=== PATIENT | male | born 1955 | race African-American/Black ===

== ENCOUNTER 2018-10-08 16:55 | Emergency (ER) | payer MEDICAID ==
[~2018-10-08] VITALS: Ht 200.7 cm; Wt 83.9 kg
--- NOTE | 2018-10-08 17:05 | NUR ---
ACCUCHGRACE- 319, TERRY STEWART AWARE.
--- NOTE | 2018-10-08 17:10 | NUR ---
BIBRA60 FROM SN[facility] FOR INCREASED CONFUSION AND HYPERGLYCEMIA, BG 500+ WAS GIVEN 5 UNITS INSULIN FINANCIAL AUDITOR. PT C/O LOWER BACK PAIN. PATIENT PLACED IN BED, ATTACHED TO THE MONITOR, NO DISTRESS, TUBBS CATHETER IN PLACED, IV LINE ON LEFT FA G18. WILL MONITOR.
[2018-10-08 17:48] LABS: BASOPHILS % (AUTO) 0.2 % (0.0-2.0); EOSINOPHILS % (AUTO) 0.2 % (0.0-6.0); HEMATOCRIT 21 % (39-51); LYMPHOCYTES # (AUTO) 0.9 /CMM (0.8-4.8); LYMPHOCYTES % (AUTO) 14.4 % (20.0-44.0); MEAN CORPUSCULAR HGB CONC 31 g/dl (31.0-36.0); MEAN CORPUSCULAR VOLUME 89 fL (80-96); MONOCYTES # (AUTO) 0.4 /CMM (0.1-1.30); MONOCYTES % (AUTO) 6.2 % (2.0-12.0); PLATELET COUNT (AUTO) 420 /CMM (150-450); RED BLOOD CELL COUNT(AUTO) 2.36 MIL/uL (4.5-6.0); WHITE BLOOD COUNT (AUTO) 6.4 K/uL (4.3-11.0)
[2018-10-08 17:49] LABS: APPEARANCE,URINE Cloudy (CLEAR); BILIRUBIN,URINE Negative (NEGATIVE); BLOOD, URINE Large Ery/uL (NEGATIVE); COLOR,URINE Amber (YELLOW); KETONES,URINE Negative (NEGATIVE); LEUKOCYTE ESTERASE ,URINE Large (NEGATIVE); NITRITE, URINE Negative (NEGATIVE); PH,URINE 8.5 (5.0-8.0); PROTEIN,URINE 100 mg/dl (NEGATIVE); UGLUCOSE Negative (NEGATIVE); UROBILINOGEN,URINE 0.2 EU/dL (0.2)
[2018-10-08 17:49] LABS: HEMOGLOBIN 6.5 g/dL (13.5-17.5)
[2018-10-08] MEDS: IV NS 0.9% 1,000 ML BAG IV ONE ×2 (17:49→18:37)
[2018-10-08 17:54] LABS: CARBON DIOXIDE 27 mmol/L (21-32); CHLORIDE 106 mmol/L (98-107); GLUCOSE 311 mg/dL (74-106); POTASSIUM 4.3 mmol/L (3.5-5.1); SODIUM SERUM 141 mmol/L (136-145); UREA NITROGEN, BLOOD 56 mg/dL (7-18)
[2018-10-08 18:00] LABS: ALANINE AMINOTRANSFERASE 136 U/L (12-78); ALBUMIN 1.7 g/dL (3.4-5.0); ALKALINE PHOSPHATASE 263 U/L (46-116); ASPARTATE AMINOTRANSFERASE 80 U/L (15-37); BILIRUBIN,DIRECT 0.2 mg/dL (0.0-0.2); BILIRUBIN,TOTAL 0.3 mg/dL (0.2-1.0); TOTAL PROTEIN, SERUM 7.1 g/dL (6.4-8.2)
--- NOTE | 2018-10-08 18:08 | NUR ---
PATIENT HAD A BOWEL MOVEMENT, PERICARE PROVIDED. PATIENT NOTED WITH O2 SAT OF 80S ON ROOM AIR, PLACED ON 2 LPM VIA NC ONLY, NOT TO GO HIGHER DUE TO EMPHYSEMA PER TERRY STEWART.
[2018-10-08 18:11] LABS: BACTERIA,URINE Many /HPF (None Seen); RBC,URINE 21-50 /HPF (0-2); SQUAMOUS EPITHELIAL CELL,UR Few /HPF (None Seen)
--- NOTE | 2018-10-08 18:35 | NUR ---
PATIENT CAME BACK FROM CT SCAN.
[2018-10-08] MEDS ORDERED: FERR325T28 PO (18:38)
[2018-10-08] MEDS ORDERED: ZINC220C6 PO (18:38)
[2018-10-08] MEDS ORDERED: QUET25TA PO (18:38)
[2018-10-08] MEDS ORDERED: PANT40TA4 PO (18:38)
[2018-10-08] MEDS ORDERED: INSU100I4 SQ (18:38)
[2018-10-08] MEDS ORDERED: BISA10SU61 RC (18:38)
[2018-10-08] MEDS ORDERED: CHOL20004 PO (18:38)
[2018-10-08] MEDS ORDERED: NA P133E RC (18:38)
[2018-10-08] MEDS ORDERED: MEMA10TA PO (18:38)
[2018-10-08] MEDS ORDERED: MULT-439 PO (18:38)
[2018-10-08] MEDS ORDERED: HYDR-4354 PO ×2 (18:38)
[2018-10-08] MEDS ORDERED: IPRA0.2S49 IH (18:38)
[2018-10-08] MEDS ORDERED: DILT360T13 PO (18:38)
[2018-10-08] MEDS ORDERED: MULT-1094 PO (18:38)
[2018-10-08] MEDS ORDERED: SENN-168 PO (18:38)
[2018-10-08] MEDS ORDERED: APIX5TAB4 PO (18:38)
[2018-10-08] MEDS ORDERED: PROT946L PO (18:38)
[2018-10-08] MEDS ORDERED: ACET-868 PO (18:38)
[2018-10-08] MEDS ORDERED: ASCO500C18 PO (18:38)
[2018-10-08] MEDS ORDERED: CRAN3875 PO (18:38)
[2018-10-08] MEDS ORDERED: GABA-532 PO (18:38)
[2018-10-08] MEDS ORDERED: FOLI1TAB16 PO (18:38)
[2018-10-08] MEDS ORDERED: TYL2T PO (18:38)
[2018-10-08] MEDS ORDERED: CRAN450C PO (18:38)
[2018-10-08] MEDS ORDERED: ATOR80TA PO (18:38)
[2018-10-08] MEDS ORDERED: MAGN400O6 PO (18:38)
[2018-10-08] MEDS: PIPERACILLIN /TAZOBACTAM 3.375 G in IV D5W 50 ML IV ONE (18:40)
--- NOTE | 2018-10-08 18:41 | NUR ---
CALLED DAUGHTER TWICE, NO ANSWER AT THIS TIME.
[2018-10-08 19:03] LABS: BAND % (MANUAL) 12 % (0.0-5.0); LYMPHOCYTES % (MANUAL) 7 % (16-48); MONOCYTES % (MANUAL) 7 % (0-11.0); NEUTROPHILS % (MANUAL) 74 (42-76)
--- NOTE | 2018-10-08 19:17 | NUR ---
PATIENT IN NO DISTRESS, ENDORSED TO ELAINA SUERO FOR LEROY.
--- NOTE | 2018-10-08 19:25 | NUR ---
PT IN BED AWAKE W /US TECH AT THE BED SIDE. NO DISTRESS NOTED,. VSS .WILL CONT TO MONITOR ,
--- NOTE | 2018-10-08 20:51 | NUR ---
Pt accpepted to [facility]. [facility]. # for report [phone]. auth#[id number].
--- NOTE | 2018-10-08 21:18 | NUR ---
Jennifer called for ALS transport. ETA: [id number] Trip#[id number]
[2018-10-08 22:12] VITALS: BP 146/82
--- NOTE | 2018-10-08 22:12 | NUR ---
report given to Dimmit at [facility] and also clinical rn liaison at the bed side.
--- NOTE | 2018-10-08 22:25 | NUR ---
pt was picked up and transferred via [facility] with a gurney in stable condition.
== END 2018-10-08 22:30 | disposition short-term general hospital (02) ==
LOC: ER 17:01
DX: N39.0 Urinary tract infection, site not specified (principal); E11.65 Type 2 diabetes mellitus with hyperglycemia; R79.89 Other specified abnormal findings of blood chemistry; R74.0 Nonspecific elevation of levels of transaminase and lactic acid dehydrogenase [LDH]; D64.9 Anemia, unspecified; L98.419 Non-pressure chronic ulcer of buttock with unspecified severity; I10 Essential (primary) hypertension; I48.91 Unspecified atrial fibrillation; E78.5 Hyperlipidemia, unspecified; K21.9 Gastro-esophageal reflux disease without esophagitis; Z86.73 Personal history of transient ischemic attack (TIA), and cerebral infarction without residual deficits; Z79.4 Long term (current) use of insulin; Z79.899 Other long term (current) drug therapy
CPT/HCPCS: 36415; 70450; 71045; 72131; 76705; 80048; 80076; 81001; 82962; 83605 ×2; 84145; 84484; 85025; 86850; 87040 ×2; 87077 ×2; 87081; 87086; 87186 ×2; 93005; 96361; 96365; 99285; J2543; J7030 ×2; J7040; J7060; 81000-TC

== ENCOUNTER → 2018-10-20 | Emergency (ER) | payer MEDICAID ==
[~2018-10-20] VITALS: Ht 200.7 cm; Wt 83.9 kg
[~2018-10-20] MED LIST: ACET-868 PO; AMIN30LI2 PO; APIX5TAB4 PO; ASCO500C18 PO; ATOR80TA PO; BISA10SU61 RC; CHOL100044 PO; CHOL20004 PO; CRAN3875 PO; CRAN450C PO; DILT360T13 PO; FERR325T28 PO; FOLI1TAB16 PO; GABA-532 PO; HYDR-4354 PO; INSU100I4 SQ; INSU100V27 SQ; IPRA0.2S49 IH; IPRA0.2S9 IH; IV NS 0.9% 1,000 ML BAG IV ONE; MAGN400O6 PO; MEMA10TA PO; MULT-1094 PO; MULT-439 PO; NA P133E RC; PANT40TA4 PO; PIPERACILLIN /TAZOBACTAM 3.375 G VIAL IV ONE; PIPERACILLIN /TAZOBACTAM 3.375 G in IV D5W 50 ML IV ONE; PROT946L PO; QUET25TA PO; SENN-168 PO; TYL2T PO; VANCOMYCIN 1 GM VIAL ONE; VANCOMYCIN 1 GM in IV D5W 250 ML IV ONE; ZINC220C6 PO
[2018-10-20 18:40] LABS: BASOPHILS # (AUTO) 0.1 /CMM (0.0-0.2); BASOPHILS % (AUTO) 0.9 % (0.0-2.0); EOSINOPHILS % (AUTO) 2.1 % (0.0-6.0); HEMATOCRIT 22 % (39-51); HEMOGLOBIN 7.1 g/dL (13.5-17.5); LYMPHOCYTES # (AUTO) 2.4 /CMM (0.8-4.8); LYMPHOCYTES % (AUTO) 22.2 % (20.0-44.0); MEAN CORPUSCULAR HGB CONC 33 g/dl (31.0-36.0); MEAN CORPUSCULAR VOLUME 87 fL (80-96); MONOCYTES # (AUTO) 0.4 /CMM (0.1-1.30); MONOCYTES % (AUTO) 3.4 % (2.0-12.0); NEUTROPHILS # (AUTO) 7.6 /CMM (1.8-8.9); NEUTROPHILS % (AUTO) 71.4 % (43.0-81.0); PLATELET COUNT (AUTO) 434 /CMM (150-450); RED BLOOD CELL COUNT(AUTO) 2.47 MIL/uL (4.5-6.0); WHITE BLOOD COUNT (AUTO) 10.6 K/uL (4.3-11.0)
--- NOTE | 2018-10-20 18:44 | NUR ---
PATIENT AWAKE ALERT DEMANDS @ TIMES bib ems FROM [facility]ILL [facility] . NOTED LESION TO [facility] AND BUMONTY NOTED SOILED KEEP PATIENT CLEAN AND DRY PLACED NEW DRESSING TO LESION
[2018-10-20 18:50] LABS: CALCIUM, SERUM 8.3 mg/dL (8.5-10.1); CARBON DIOXIDE 21 mmol/L (21-32); CHLORIDE 108 mmol/L (98-107); CREATININE 1.3 mg/dL (0.6-1.3); GLUCOSE 253 mg/dL (74-106); POTASSIUM 4.4 mmol/L (3.5-5.1); SODIUM SERUM 140 mmol/L (136-145); UREA NITROGEN, BLOOD 33 mg/dL (7-18)
[2018-10-20 19:01] LABS: ALANINE AMINOTRANSFERASE 15 U/L (12-78); ALBUMIN 1.5 g/dL (3.4-5.0); ALKALINE PHOSPHATASE 132 U/L (46-116); ASPARTATE AMINOTRANSFERASE 15 U/L (15-37); BILIRUBIN,DIRECT 0.1 mg/dL (0.0-0.2); BILIRUBIN,TOTAL 0.2 mg/dL (0.2-1.0); LIPASE 37 U/L (73-393); TOTAL PROTEIN, SERUM 6.3 g/dL (6.4-8.2)
[2018-10-20 19:09] LABS: APPEARANCE,URINE Cloudy (CLEAR); BILIRUBIN,URINE Negative (NEGATIVE); BLOOD, URINE Small Ery/uL (NEGATIVE); COLOR,URINE Yellow (YELLOW); KETONES,URINE Negative (NEGATIVE); LEUKOCYTE ESTERASE ,URINE Large (NEGATIVE); NITRITE, URINE Negative (NEGATIVE); PH,URINE 8.5 (5.0-8.0); PROTEIN,URINE 30 mg/dl (NEGATIVE); UGLUCOSE Negative (NEGATIVE); UROBILINOGEN,URINE 0.2 EU/dL (0.2)
[2018-10-20 19:16] LABS: BACTERIA,URINE 2+ /HPF (None Seen); SQUAMOUS EPITHELIAL CELL,UR Few /HPF (None Seen); WBC,URINE TOO NUMEROUS TO COUN /HPF (0-3)
--- NOTE | 2018-10-20 19:35 | NUR ---
PT RESTING IN BED
--- NOTE | 2018-10-20 20:21 | NUR ---
PATIENT ACCEPTED TO [facility]. AWAITING TRANSFER INFORMATION
--- NOTE | 2018-10-20 22:08 | NUR ---
PT GIVEN BED AT [facility], 1002B. GIVE REPORT [phone]
--- NOTE | 2018-10-20 22:18 | NUR ---
[facility] ETA 45-60 MIN
--- NOTE | 2018-10-20 23:14 | NUR ---
PT WAS TRANSFERRED TO [facility] VIA AMBULANCE. PT IN STABLE CONDITION. REPORT GIVEN KRISTYN SPARROW #[phone].
[2018-10-20 23:20] VITALS: BP 119/74
--- NOTE | 2018-10-21 22:37 | NUR ---
CALLED [phone] RADHA BASS, SPOKE TO NIMO SWIFT PT BLOOD CX PRELIM RESULTS, FAXED TO [phone]
== END | disposition short-term general hospital (02) ==
LOC: ER 18:05
DX: L89.154 Pressure ulcer of sacral region, stage 4 (principal); E11.622 Type 2 diabetes mellitus with other skin ulcer; D64.9 Anemia, unspecified; N30.00 Acute cystitis without hematuria; R53.1 Weakness; I10 Essential (primary) hypertension; I48.91 Unspecified atrial fibrillation; K21.9 Gastro-esophageal reflux disease without esophagitis; E11.40 Type 2 diabetes mellitus with diabetic neuropathy, unspecified; E78.5 Hyperlipidemia, unspecified; Z79.899 Other long term (current) drug therapy; Z79.4 Long term (current) use of insulin
CPT/HCPCS: 36415; 51702; 80048; 80076; 81001; 83605; 83690; 84484; 85025; 85730; 86850; 87040 ×2; 87081; 87086; 87186; 96365; 96375; 99285; A6253; J2543; J3370; J7030; 81000-TC; J7060

== ENCOUNTER 2019-07-03 15:04 | Inpatient (IN) | payer MEDICAID, MEDICARE ==
[~2019-07-03] VITALS: Ht 195.6 cm; Wt 80.7 kg
[~2019-07-03 15:04] MED LIST changes: -CHOL20004 PO; -INSU100I4 SQ; -IPRA0.2S49 IH; -IV NS 0.9% 1,000 ML BAG IV ONE; -MULT-1094 PO; -PIPERACILLIN /TAZOBACTAM 3.375 G VIAL IV ONE; -PIPERACILLIN /TAZOBACTAM 3.375 G in IV D5W 50 ML IV ONE; -PROT946L PO; -QUET25TA PO; -SENN-168 PO; +SENN-261 PO; -TYL2T PO; -VANCOMYCIN 1 GM VIAL ONE; -VANCOMYCIN 1 GM in IV D5W 250 ML IV ONE
--- NOTE | 2019-07-03 15:05 | NUR ---
ALBAN FROM [facility]. TO ER BED 12. OBTUNDED. TACHYPNEIC. BED BOUND. PT BROUGHT IN FOR SOB, REPORTED DESATURATED 80% DESPITE 6LPM ON 02 VIA FL. UPON ASSESSMENT, PT WAS NOTED WITH 02 SAT 95% ON LPM. PT IS PRESENTED W/ TUBBS CATH, DARK FOUL SMELLING URINE. PT WAS REPORTED WITH BS "HI". PT IS REPORTED COVID POSITIVE ON 06/24/19. AT [facility] FOR EVAL. AWAITING ORDERS
[2019-07-03] MEDS ORDERED: IV NS 0.9% 2,000 ML IV ONE (15:11)
[2019-07-03] MEDS ORDERED: INSU10VI3 SQ (15:34)
[2019-07-03] MEDS ORDERED: QUET25TA PO (15:34)
[2019-07-03] MEDS ORDERED: HYDR4TAB4 PO (15:34)
[2019-07-03] MEDS ORDERED: MORP20SO PO (15:34)
[2019-07-03] MEDS ORDERED: LORA-259 PO (15:34)
[2019-07-03] MEDS ORDERED: ASPI-1169 PO (15:34)
[2019-07-03] MEDS ORDERED: BLOO-668 IN (15:34)
[2019-07-03] MEDS ORDERED: ACET650S11 RC (15:34)
[2019-07-03 15:35] LABS: APPEARANCE,URINE Clear (CLEAR); BILIRUBIN,URINE LARGE (NEGATIVE); BLOOD, URINE Small Ery/uL (NEGATIVE); COLOR,URINE Yellow (YELLOW); KETONES,URINE Trace (NEGATIVE); LEUKOCYTE ESTERASE ,URINE Large (NEGATIVE); NITRITE, URINE Positive (NEGATIVE); PH,URINE 8.5 (5.0-8.0); PROTEIN,URINE >=300 mg/dl (NEGATIVE); UGLUCOSE Negative (NEGATIVE)
[2019-07-03 15:45] LABS: BASOPHILS # (AUTO) 0.2 /CMM (0.0-0.2); BASOPHILS % (AUTO) 0.9 % (0.0-2.0); HEMATOCRIT 35 % (39-51); HEMOGLOBIN 10.2 g/dL (13.5-17.5); LYMPHOCYTES # (AUTO) 1.8 /CMM (0.8-4.8); LYMPHOCYTES % (AUTO) 6.9 % (20.0-44.0); MEAN CORPUSCULAR HGB CONC 29 g/dl (31.0-36.0); MEAN CORPUSCULAR VOLUME 90 fL (80-96); MONOCYTES % (AUTO) 3.7 % (2.0-12.0); NEUTROPHILS # (AUTO) 23.4 /CMM (1.8-8.9); NEUTROPHILS % (AUTO) 88.5 % (43.0-81.0); PLATELET COUNT (AUTO) 422 /CMM (150-450); RED BLOOD CELL COUNT(AUTO) 3.91 MIL/uL (4.5-6.0); WHITE BLOOD COUNT (AUTO) 26.4 K/uL (4.3-11.0)
[2019-07-03 15:55] LABS: ALANINE AMINOTRANSFERASE 56 U/L (12-78); ALBUMIN 2.3 g/dL (3.4-5.0); ALKALINE PHOSPHATASE 171 U/L (46-116); ASPARTATE AMINOTRANSFERASE 36 U/L (15-37); B-TYPE NATRIURETIC PEPTIDE 4784 PG/ML (0-125); BILIRUBIN,TOTAL 0.8 mg/dL (0.2-1.0); CARBON DIOXIDE 16 mmol/L (21-32); TOTAL PROTEIN, SERUM 9.1 g/dL (6.4-8.2)
[2019-07-03] MEDS ORDERED: CEFEPIME 1 GM in IV D5W 50 ML IV ONE (16:00)
[2019-07-03] MEDS ORDERED: VANCOMYCIN HCL 1.25 GM in IV D5W 260 ML IV ONE (16:00)
[2019-07-03] MEDS ORDERED: AZITHROMYCIN 500 MG in IV D5W 250 ML IV ONE (16:00)
--- NOTE | 2019-07-03 16:00 | NUR ---
paged [facility].
[2019-07-03 16:07] LABS: ABG BASE EXCESS -18.4 mmol/L; ABG OXYGEN SATURATION 81.2 % (92.0-98.5); ABG PCO2 17.2 mmHg (35.0-45.0); ABG PH 7.246 (7.350-7.450); ABG PO2 56.1 mmHg (75.0-100.0); AaDO2 180.6 mmHg; COHb 0.4 % (0.5-1.5); MetHb 1.5 % (0.0-1.5); O2Hb 79.7 % (94.0-97.0); SITE, ABG Right Brachial; VENT MODE, BG NASAL CANNULA
--- NOTE | 2019-07-03 16:08 | NUR ---
VS REPORTED TO MD. VERBAL ORDER RECEIVED TO GIVE ANOTHER LITER OF NS X 1 BOLUS.
[2019-07-03 16:10] LABS: GLUCOSE 542 mg/dL (74-106); UREA NITROGEN, BLOOD 264 mg/dL (7-18)
[2019-07-03 16:11] LABS: C-REACTIVE PROTEIN 7.2 mg/dL (0.0-0.9)
[2019-07-03 16:17] LABS: CHLORIDE 117 mmol/L (98-107)
[2019-07-03 16:30] LABS: CREATINE KINASE, TOTAL 451 U/L (39-308); FERRITIN 1690 ng/mL (8-388)
[2019-07-03] MEDS ORDERED: ACETAMINOPHEN 650 MG/SUPP.RECT RC ONE ×2 (16:30→16:47)
[2019-07-03] MEDS ORDERED: INSULIN REGULAR, HUMAN 100 UNIT/ML 10 ML VIAL IV ONE (16:30)
[2019-07-03] MEDS ORDERED: CALCIUM GLUCONATE IV ONE (16:30)
[2019-07-03] MEDS ORDERED: IV NS 0.9% 500 ML BAG IV ONE (16:30)
[2019-07-03] MEDS ORDERED: NS 0.9% IV ONE (16:30)
[2019-07-03 16:31] LABS: BACTERIA,URINE Many /HPF (None Seen); SQUAMOUS EPITHELIAL CELL,UR Few /HPF (None Seen); WBC,URINE 21-50 /HPF (0-3)
[2019-07-03] MEDS ORDERED: INSULIN REGULAR, HUMAN 100 UNIT/ML 10 ML VIAL ONE (16:47)
[2019-07-03] MEDS ORDERED: Calcium Gluconate 0.465 MEQ/ML VIAL IV ONE (16:47)
[2019-07-03 17:02] LABS: D-DIMER 1.74 mg/L(FEU (0.17-0.50)
--- NOTE | 2019-07-03 17:29 | NUR ---
at bedside for central line insertion
--- NOTE | 2019-07-03 17:46 | NUR ---
BED 253-ICU
--- NOTE | 2019-07-03 17:47 | NUR ---
successfully obtained a central line on left IJ w/ 3 lumen. MD approved use of line. x ray will be done as well.
--- NOTE | 2019-07-03 17:56 | NUR ---
MD MADE AWARE OF VS. BP NOTED AT 86/55. MD ORDER TO STARTED ON LEVO
[2019-07-03] MEDS ORDERED: NOREPINEPHRINE 8 MG in IV NS 0.9% 250 ML IV PRN (18:00)
[2019-07-03 18:39] LABS: BILIRUBIN,DIRECT 0.3 mg/dL (0.0-0.2)
--- NOTE | 2019-07-03 18:40 | NUR ---
SARINA PETERS AT BEDSIDE
[2019-07-03 18:52] LABS: CALCIUM, SERUM 8.9 mg/dL (8.5-10.1); POTASSIUM 5.1 mmol/L (3.5-5.1)
--- NOTE | 2019-07-03 18:56 | NUR ---
REPORT GIVEN TO NIMO SEGUNDO FOR LEROY.
[2019-07-03 18:58] LABS: CREATININE 8.4 mg/dL (0.6-1.3)
[2019-07-03] MEDS ORDERED: ONDANSETRON HCL/PF 4 MG/2 ML VIAL IVP PRN (19:00)
[2019-07-03] MEDS ORDERED: INSULIN REGULAR, HUMAN 100 UNIT in IV NS 0.9% 99 ML IV PRN ×2 (19:00)
[2019-07-03] MEDS ORDERED: ACETAMINOPHEN 650 MG/SUPP.RECT RC PRN (19:00)
[2019-07-03] MEDS ORDERED: Z GUARD REMEDY 2 OZ OINT TP PRN (19:00)
[2019-07-03] MEDS ORDERED: FEE PK DOSING 1 MIN EA MC ONE (19:37)
--- NOTE | 2019-07-03 19:53 | NUR ---
pt transported to unit on gurney with emt and rn at bedside w/ acls protocol. nad noted during transport.
--- NOTE | 2019-07-03 19:55 | NUR ---
RN NOTE RECEIVED PT FROM ER VIA [facility] ACCOMPANIED BY 2 RNS. PT TRANSFERRED FROM BED TO [facility]. PT WITH LEVOPHED ON 0.1 AT THIS TIME. PT IS OBTUNDED. CURENTLY ON 4L OF O2 VIA NC AND TOLERATING WELL. PT WITH TUBBS CATHETER WITH CLOUDY YELLOW URINE DRAINING. WITH TRIPLE LUMEN CATHETER ON ON LEFT SIDE, PATENT AND FLUSHING WELL. COMPREHENSIVE PHYSICAL ASSESSMENT COMPLETED. VITAL SIGNS WNL , CALL LIGHT WITHIN REACH, SAFETY MEASURES IN PLACE, WILL MONITOR PT.
[2019-07-03 20:00] VITALS: BP 125/78
[2019-07-03] MEDS: NOREPINEPHRINE 8 MG in IV NS 0.9% 242 ML IV PRN (20:00)
[2019-07-03] MEDS: IV D5/0.45 NACL 1,000 ML IV PRN (20:37)
[2019-07-03] MEDS: BLOOD SUGAR DIAGNOSTIC 1 EACH STRIP IN SCH ×3 (20:55→23:17)
[2019-07-03 21:00] VITALS: BP 109/55
[2019-07-03] MEDS ORDERED: CEFEPIME 1 GM in IV D5W 50 ML IV SCH (21:00)
[2019-07-03] MEDS: INSULIN REGULAR, HUMAN 100 UNIT in IV NS 0.9% 99 ML IV PRN ×2 (21:17)
[2019-07-03] MEDS: MEROPENEM 500 MG in IV NS 0.9% 50 ML IV SCH (21:47)
[2019-07-03 22:00] VITALS: BP 118/68
--- NOTE | 2019-07-03 22:11 | NUR ---
RN NOTE NOTED WITH TORSADES DE POINTES, PULSELESS AND UNRESPONSIVE. ACLS PROTOCOL INITIATED. CODE BLUE CALLED. SEE CODE BLUE SHEET FOR DETAILS.
--- NOTE | 2019-07-03 22:18 | NUR ---
RN NOTE GASTONMACKENZIE LAURA, DAUGHTER NOTIFIED ABOUT PT'S CONDITION. DR. ROCHE PRESENT AND TALKING TO DAUGHTER ON PHONE.
--- NOTE | 2019-07-03 22:22 | NUR ---
CODE BLUE @2211 . PT ORALLY INTUBATED WITH 7.5 ETT SECURED @ 23 CM LIP LINE. CO2 DETECTOR COLOR CHANGED. PT PLACED ON MECH VENT WITH THE SETTINGS OF AC 16,500,PEEP 5, FIO2 100%. VENT PLUGGED INTO RED OUTLET. ALARMS ON AND AUDIBLE. WILL CONTINUE TO MONITOR THE PT T/O SHIFT.
[2019-07-03] MEDS ORDERED: AMIODARONE 150 MG/3 ML VIAL IV ONE (22:23)
[2019-07-03] MEDS ORDERED: AMIODARONE 450 MG in IV D5W 250 ML IV PRN (22:30)
[2019-07-03] MEDS: AMIODARONE 450 MG in IV D5W 250 ML IV PRN (22:31)
[2019-07-03 23:00] VITALS: BP 102/55
[2019-07-03 23:52] LABS: ABG BASE EXCESS -11.1 mmol/L; ABG OXYGEN SATURATION 98.9 % (92.0-98.5); ABG PCO2 37.8 mmHg (35.0-45.0); ABG PH 7.232 (7.350-7.450); ABG PO2 189.5 mmHg (75.0-100.0); AaDO2 485.7 mmHg; COHb 0.3 % (0.5-1.5); MetHb 0.3 % (0.0-1.5); O2Hb 98.3 % (94.0-97.0); SITE, ABG Right Brachial
[2019-07-04] VITALS (94 sets, daily range): BP systolic 77–163; BP diastolic 49–87
--- NOTE | 2019-07-04 00:10 | NUR ---
RN NOTE DR. ROCHE PAGED REGARDING ABG RESULT.
[2019-07-04] MEDS ORDERED: SODIUM BICARBONATE SYR 50 MEQ/50 ML DISP.SYRIN IV STA (00:18)
[2019-07-04] MEDS: BLOOD SUGAR DIAGNOSTIC 1 EACH STRIP IN SCH ×23 (00:20→23:20)
--- NOTE | 2019-07-04 00:30 | NUR ---
RN NOTE DR. ROCHE CALLED BACK. WITH NEW ORDER TO DO ABG AT 0300 AND ADMINISTER 1 AMP OF BICARB. ORDER NOTED AND CARRIED OUT.
--- NOTE | 2019-07-04 02:53 | NUR ---
RN NOTE NG INSERTED WITH ASSISTANCE FROM LIEN SEARCHER RENEE. PLACEMENT VERIFIED VIA AUSCULTATION. WILL VERIFY WITH MORNING CHEST X RAY.
--- NOTE | 2019-07-04 03:10 | NUR ---
RN NOTE RECEIVED CRITICAL LAB ALERTS FOR SODIUM 157, BLOOD GLUCOSE 522, BUN 254 AND CREATININE 8.7. PAGEHernandez MENDEZ MARKETING COMMUNICATIONS ASSOCIATE.
[2019-07-04 03:13] LABS: BASOPHILS # (AUTO) 0.1 /CMM (0.0-0.2); BASOPHILS % (AUTO) 0.7 % (0.0-2.0); HEMATOCRIT 29 % (39-51); HEMOGLOBIN 8.7 g/dL (13.5-17.5); LYMPHOCYTES # (AUTO) 0.7 /CMM (0.8-4.8); LYMPHOCYTES % (AUTO) 3.2 % (20.0-44.0); MEAN CORPUSCULAR HGB CONC 30 g/dl (31.0-36.0); MEAN CORPUSCULAR VOLUME 87 fL (80-96); MONOCYTES # (AUTO) 0.7 /CMM (0.1-1.30); MONOCYTES % (AUTO) 3.4 % (2.0-12.0); NEUTROPHILS # (AUTO) 19.8 /CMM (1.8-8.9); NEUTROPHILS % (AUTO) 92.7 % (43.0-81.0); PLATELET COUNT (AUTO) 332 /CMM (150-450); RED BLOOD CELL COUNT(AUTO) 3.34 MIL/uL (4.5-6.0); WHITE BLOOD COUNT (AUTO) 21.3 K/uL (4.3-11.0)
[2019-07-04 03:15] LABS: ABG BASE EXCESS -7.8 mmol/L; ABG OXYGEN SATURATION 99.3 % (92.0-98.5); ABG PCO2 36.2 mmHg (35.0-45.0); ABG PH 7.308 (7.350-7.450); ABG PO2 309.9 mmHg (75.0-100.0); AaDO2 366.9 mmHg; COHb 0.3 % (0.5-1.5); MetHb 0.6 % (0.0-1.5); O2Hb 98.4 % (94.0-97.0); SITE, ABG Right Brachial
--- NOTE | 2019-07-04 03:25 | NUR ---
RN NOTE ABG RESULT REPORTED TO DR. ROCHE. NEW ORDER TO LOWER FIO2 TO 80% AND ADMINISTER 1 MORE AMP OF SODIUM BICARB INJECTION. ORDER NOTE AND CARRIED OUT.
[2019-07-04 03:26] LABS: ALBUMIN 1.9 g/dL (3.4-5.0); BILIRUBIN,TOTAL 0.6 mg/dL (0.2-1.0); CALCIUM, SERUM 9.2 mg/dL (8.5-10.1); MAGNESIUM 3.3 mg/dL (1.8-2.4); PHOSPHORUS 5.8 mg/dL (2.5-4.9); POTASSIUM 4.9 mmol/L (3.5-5.1); TOTAL PROTEIN, SERUM 7.7 g/dL (6.4-8.2)
[2019-07-04] MEDS ORDERED: SODIUM BICARBONATE SYR 50 MEQ/50 ML DISP.SYRIN IV ONE (03:30)
[2019-07-04 03:42] LABS: C-REACTIVE PROTEIN 31.4 mg/dL (0.0-0.9)
[2019-07-04 03:45] LABS: CREATININE 8.7 mg/dL (0.6-1.3)
[2019-07-04 04:56] LABS: D-DIMER 22.38 mg/L(FEU (0.17-0.50)
[2019-07-04] MEDS ORDERED: AMIODARONE 150 MG/3 ML VIAL IV ONE ×2 (05:12→09:51)
--- NOTE | 2019-07-04 05:19 | NUR ---
RN NOTE DR. ROCHE MADE AWARE OF CRITICAL LAB RESULTS. NO NEW ORDERS GIVEN.
[2019-07-04] MEDS: AMIODARONE 450 MG in IV D5W 250 ML IV PRN (05:23)
--- NOTE | 2019-07-04 06:20 | NUR ---
RN NOTE DR. ROCHE MADE AWARE OF PATIENT'S LOW URINE OUTPUT THIS SHIFT. NO NEW ORDERS GIVEN.
[2019-07-04] MEDS: IV D5/0.45 NACL 1,000 ML IV PRN ×2 (07:26→17:56)
[2019-07-04] MEDS ORDERED: IV NS 0.9% 1,000 ML IV SCH (07:54)
--- NOTE | 2019-07-04 08:00 | NUR ---
ICU/RN: INITIAL NOTES,AM RECEIVED REPORT FROM NIGHT NURSE. PT OBTUNDED, OPENS EYES DOES NOT FOLLOW COMMANDS. ETT, 7.5, 23CM AT THE LIP, ON VENT SETTINGS ORDERED BY MD, NO ACUTE DISTRESS NOTED AT THIS TIME. SINUS ON TELE. TUBBS CATH IN PLACE, MINIMAL URINE OUTPUT NOTED. LEFT IJ AND PIV PATENT AND INTACT, NO S/S OF INFECTION OR INFILTRATION NOTED LEVO INFUSING FOR BP SUPPORT PER PROTOCOL. NG TUBE IN PLACE, CLAMPED, PLACEMENT VERIFIED. ALL NEEDS WILL BE ATTENDED TO, SAFETY MEASURES TAKEN, BED IN LOW POSITION, SIDE RAILS UP, CALL LIGHT WITHIN REACH.
--- NOTE | 2019-07-04 08:09 | NUR ---
FIO2 DECREASED FROM 80% TO 40% DUE TO309 PAO2 AND 100% SPO2. RN NOTIFIED ON CHANGES. Addendum: 07/04/19 at 0810 by JESUS HOLCOMB RT Amended: Links added.
[2019-07-04] MEDS ORDERED: IV D5/0.45 NACL 1,000 ML IV ONE (08:30)
[2019-07-04] MEDS: NOREPINEPHRINE 8 MG in IV NS 0.9% 242 ML IV PRN (08:41)
[2019-07-04] MEDS ORDERED: AMIODARONE 450 MG in IV D5W 250 ML IV PRN (09:00)
[2019-07-04] MEDS ORDERED: SUCCINYLCHOLINE CHLORIDE 20 MG/ML VIAL IV ONE (09:11)
--- NOTE | 2019-07-04 09:30 | NUR ---
ICU/RN: LEVO OFF. VSS. BP 132/84, HR 90, RR 18. WILL CONTINUE TO MONITOR
[2019-07-04] MEDS: MEROPENEM 500 MG in IV NS 0.9% 50 ML IV SCH ×2 (09:31→22:03)
[2019-07-04] MEDS: HEPARIN SODIUM, PORCINE 5000 UNITS/1 ML VIAL SQ SCH ×2 (09:32→22:04)
--- NOTE | 2019-07-04 09:35 | NUR ---
et tube adjusted from 23cm lipline to 25.5 cm lipline. Addendum: 07/04/19 at 0935 by JESUS HOLCOMB RT Amended: Links added.
--- NOTE | 2019-07-04 09:40 | NUR ---
ICU/RN: ET TUBE ADJUSTED PER , ADVANCED 2.5CM. NOW 25.5 AT THE LIP. VENT SETTINGS ORDERED. NO DISTRESS. WILL CONTINUE TO MONITOR
[2019-07-04] MEDS ORDERED: EPINEPHRINE (1:10,000) SYRINGE 1 MG/10 ML DISP.SYRIN IVP ONE (09:51)
[2019-07-04] MEDS ORDERED: Magnesium 1 GM/2 ML VIAL IV ONE (09:51)
[2019-07-04 12:29] LABS: CREATININE, URINE 319.6 MG/DL (30.0-125.0); URINE TOTAL PROTEIN 434.4 mg/dL (0-11.9)
[2019-07-04 12:37] LABS: APPEARANCE,URINE CLOUDY (CLEAR); BILIRUBIN,URINE MODERATE (NEGATIVE); BLOOD, URINE MODERATE Ery/uL (NEGATIVE); COLOR,URINE AMBER (YELLOW); KETONES,URINE NEGATIVE (NEGATIVE); LEUKOCYTE ESTERASE ,URINE MODERATE (NEGATIVE); NITRITE, URINE POSITIVE (NEGATIVE); PH,URINE 8.5 (5.0-8.0); PROTEIN,URINE 100 mg/dl (NEGATIVE); UGLUCOSE NEGATIVE (NEGATIVE)
[2019-07-04 12:44] LABS: BACTERIA,URINE Many /HPF (None Seen); SQUAMOUS EPITHELIAL CELL,UR Rare /HPF (None Seen)
[2019-07-04 12:45] LABS: WBC,URINE 51-80 /HPF (0-3)
[2019-07-04] MEDS: INSULIN REGULAR, HUMAN 100 UNIT in IV NS 0.9% 99 ML IV PRN ×2 (13:54)
[2019-07-04 13:57] LABS: CALCIUM, SERUM 8.9 mg/dL (8.5-10.1); POTASSIUM 4.4 mmol/L (3.5-5.1)
[2019-07-04 14:05] LABS: CREATININE 8.6 mg/dL (0.6-1.3)
[2019-07-04 14:08] LABS: EOSINOPHIL,URINE None Seen
[2019-07-04 14:50] LABS: C-REACTIVE PROTEIN 49.2 mg/dL (0.0-0.9)
--- NOTE | 2019-07-04 16:45 | NUR ---
ICU/RN: IHSAN COLLINS AT BEDSIDE FOR HD CATHETER INSERTION. CONSENT IN CHART. VSS. WILL CONTINUE TO MONITOR.
--- NOTE | 2019-07-04 17:16 | NUR ---
ICU/RN: UNABLE TO SCAN AMIODARONE 450MG/250ML RX#[id number]. PHARMACY CALLED AND NOTIFIED. AWARE THAT WE ARE UNABLE TO SCAN NEW BAG. BAG REPLACED. RUNNING AT 16.6 ML/HR (0.5MG/MIN) ORDERED.
[2019-07-04 17:45] LABS: CALCIUM, SERUM 8.9 mg/dL (8.5-10.1); POTASSIUM 4.3 mmol/L (3.5-5.1)
[2019-07-04 17:51] LABS: CREATININE 8.5 mg/dL (0.6-1.3)
[2019-07-04] MEDS ORDERED: VANCOMYCIN 1 GM in IV D5W 250 ML IV ONE (18:30)
--- NOTE | 2019-07-04 19:00 | NUR ---
RECEIVED PATIENT ON CONTACT/DROPLET ISOLATION FOR COVID-19 .ORALLY INTUBATED ON THE VENTILATOR ON AC MODE,NOT IN ANY DISTRESS,BREATHING REGULAR AND NON LABORED.LETHARGIC,+ COUGH AND GAG, BLINKSEYES TOP PAIN,BUT NO MOVEMENT NOTED ON ALL EXTREMITIES.ON AMIODARONE DRIP (NOW @ 0.5 MG/MIN),UNTIL 2229 ,WILL START ON PO AFTER.HD CATHETER INSERTED TODAY VIA RIGHT FEMORAL, FOR HEMODIALYSIS TONIGHT.
--- NOTE | 2019-07-04 20:03 | NUR ---
PT RECEIVED ORALLY INTUBATED WITH 7.5 ETT SECURED @ 25 CM LIP LINE ON VENT WITH NOTED SETTINGS. CUFF CHECKED VIA DRILL BIT SHARPENER. AMBU BAG @ HOB. SX DONE, ETT SECURED AND PATENT. ALARMS ON AND AUDIBLE. VENT PLUGGED TO RED OUTLET. NO RESPIRATORY DISTRESS NOTED AT THIS TIME. WILL CONTINUE TO MONITOR THE PT T/O SHIFT
--- NOTE | 2019-07-04 20:30 | NUR ---
HEMODIALYSIS CONSENT OBTAINED FROM DAUGHTER VIA TELEPHONE,AGREED TO PROCEED WITH HD.
--- NOTE | 2019-07-04 20:40 | NUR ---
HEMODIALYSIS STARTED BY HD NURSE. STARTED ON LEVOPHED DRIP,WILL TITRATE NEEDED WHILE ON HEMODIALYSIS.
--- NOTE | 2019-07-04 22:00 | NUR ---
HEMODIALYSIS IN PROGRESS,BP LABILE WHILE ON DIALYSIS.LEVOPHED DRIP TITRATED.
[2019-07-04] MEDS: AMIODARONE HCL 200 MG TABLET PO SCH (22:03)
--- NOTE | 2019-07-04 23:30 | NUR ---
HEMODIALYSIS OVER,TOLERATED WITH THE LEVOPHED DRIP, PULLED 500 ML.
[2019-07-05] VITALS (55 sets, daily range): BP systolic 88–151; BP diastolic 45–79
--- NOTE | 2019-07-05 | NUR ---
STILL ON LEVOPHED RIP AND INSULIN DRIP.MORE RESPONSIVE,OPENS EYES ,STRONG COUGH ,STILL NOT MOVING ANY OF THE EXTREMITIES.
[2019-07-05] MEDS: BLOOD SUGAR DIAGNOSTIC 1 EACH STRIP IN SCH ×14 (00:24→18:00)
[2019-07-05] MEDS ORDERED: NOREPINEPHRINE 8MG/250ML RTU 250 ML IV ONE (00:36)
[2019-07-05] MEDS: NOREPINEPHRINE 8 MG in IV NS 0.9% 242 ML IV PRN ×2 (01:12→11:30)
[2019-07-05 01:59] LABS: CALCIUM, SERUM 8.6 mg/dL (8.5-10.1); CREATININE 5.5 mg/dL (0.6-1.3); POTASSIUM 3.4 mmol/L (3.5-5.1)
--- NOTE | 2019-07-05 04:00 | NUR ---
AM BATH DONE,STATUS UNCHANGED.STILL ON INSULIN DRIP .LAST ANION GAP@0200=16.LEVOPHED DRIP NOW DOWN TO 0.05 MCG/KG/MIN
[2019-07-05 04:36] LABS: BASOPHILS % (AUTO) 0.3 % (0.0-2.0); EOSINOPHILS % (AUTO) 0.2 % (0.0-6.0); HEMATOCRIT 28 % (39-51); HEMOGLOBIN 8.6 g/dL (13.5-17.5); LYMPHOCYTES # (AUTO) 0.6 /CMM (0.8-4.8); LYMPHOCYTES % (AUTO) 3.4 % (20.0-44.0); MEAN CORPUSCULAR HGB CONC 31 g/dl (31.0-36.0); MEAN CORPUSCULAR VOLUME 83 fL (80-96); MONOCYTES # (AUTO) 0.5 /CMM (0.1-1.30); MONOCYTES % (AUTO) 2.8 % (2.0-12.0); NEUTROPHILS # (AUTO) 16.4 /CMM (1.8-8.9); NEUTROPHILS % (AUTO) 93.3 % (43.0-81.0); PLATELET COUNT (AUTO) 290 /CMM (150-450); RED BLOOD CELL COUNT(AUTO) 3.32 MIL/uL (4.5-6.0); WHITE BLOOD COUNT (AUTO) 17.5 K/uL (4.3-11.0)
[2019-07-05 04:58] LABS: ALBUMIN 1.8 g/dL (3.4-5.0); BILIRUBIN,TOTAL 0.5 mg/dL (0.2-1.0); CALCIUM, SERUM 8.6 mg/dL (8.5-10.1); CREATININE 5.6 mg/dL (0.6-1.3); MAGNESIUM 2.3 mg/dL (1.8-2.4); PHOSPHORUS 3.3 mg/dL (2.5-4.9); POTASSIUM 3.5 mmol/L (3.5-5.1); TOTAL PROTEIN, SERUM 7.5 g/dL (6.4-8.2)
--- NOTE | 2019-07-05 05:00 | NUR ---
RADIOLOGY CALLED, SPOKE TO JIMBO ,ACCORDING TO HER, (RADIOLOGIST) WANTS OUR MD TO FOLLOW UP ON THE CHEST X RAY TODAY07/05/19 MAKE SURE THEY' RE AWARE .DID NOT GIVE ANY RECOMMENDATION ON WHAT TO DO BUT JUST TO MAKE SURE THE MD READ THE RESULT. SHE SAID WE SHOPULD BE ABLE TO READ THE RESULT IN THE CHART NOW. I CHECK ON THE PATIENT'S CHART ,CHEST X RAT RESULT IS NOT AVAILABLE YET.
[2019-07-05] MEDS: AMIODARONE HCL 200 MG TABLET PO SCH ×3 (05:17→22:36)
--- NOTE | 2019-07-05 06:00 | NUR ---
NO CHANGE IN STATUS.STILL ON INSULIN DRIP,LEVOPHED DRIP.CONTINUE SACRAL ULCER CARE.
[2019-07-05] MEDS: IV D5/0.45 NACL 1,000 ML IV PRN (06:14)
--- NOTE | 2019-07-05 07:00 | NUR ---
REPORT GIVEN TO LJ SUERO
--- NOTE | 2019-07-05 07:20 | NUR ---
RN note: Received patient in bed and asleep. Tele monitoring showing sinus rhtyhm in the 80s. Isolation precaution in place for COVID-19. Currently on mech ventilation on prescribed settings and being tolerated well. With NGT and received report to f/u with radiology regardings results for placement. No pain noted on patient. IV sites clean, dry, patent and intact. IV infusion of D5 1/2 NS @ 100mls/hr, Levophed @ 0.05mcg/kg/min and insulin drip running and being tolerated well. Dale catheter draining yellow urine. Call light in reach. Bed locked, low and at semi-spencer's position. Side rails up x3. Safety ensured and observed. Will continue to monitor.
--- NOTE | 2019-07-05 07:48 | NUR ---
WOUND CARE CONSULT: REVIEWED CHART, NURSING DOCUMENTATION AND PHOTOS WHICH SHOW MULTIPLE WOUNDS PRESENT ON ADMISSION INCLUDING RT LATERAL KNEE INTACT DEEP TISSUE INJURY, RT LOWER LEG DISCOLORATION, HEEL DEEP TISSUE INJURY AND LARGE SACRAL WOUND, ALL PRESENT ON ADMISSION. RECOMMEND SURGICAL AND DPM CONSULTS. DR SANDHU AND DR MCCOY NOTIFIED OF CONSULT REQUESTS. PT IS ON GLENYS ISOFLEX LOW AIRLOSS BED. ALL SKIN PROTECTION RECOMMENDATIONS DISCUSSED WITH NURSING STAFF. WILL SEE PRN. IN AGREEMENT WITH PLAN OF CARE.
[2019-07-05] MEDS: HEPARIN SODIUM, PORCINE 5000 UNITS/1 ML VIAL SQ SCH ×2 (09:01→22:37)
[2019-07-05 09:02] LABS: ABG BASE EXCESS -0.2 mmol/L; ABG OXYGEN SATURATION 98.3 % (92.0-98.5); ABG PCO2 29.1 mmHg (35.0-45.0); ABG PH 7.504 (7.350-7.450); ABG PO2 106.5 mmHg (75.0-100.0); AaDO2 145.2 mmHg; COHb 0.4 % (0.5-1.5); MetHb 0.3 % (0.0-1.5); O2Hb 97.6 % (94.0-97.0); SITE, ABG Right Brachial; VENT MODE, BG AC 16 500 40% +5
[2019-07-05] MEDS: MEROPENEM 500 MG in IV NS 0.9% 50 ML IV SCH ×2 (09:18→22:37)
[2019-07-05] MEDS: INSULIN REGULAR, HUMAN 100 UNIT in IV NS 0.9% 99 ML IV PRN ×2 (09:31)
--- NOTE | 2019-07-05 10:15 | NUR ---
RN note: Spoke to patient's daughterAlfonso to give update on patient's condition. She is aware and understood current situation. Daughter informed nurse not to give any information regarding patient to his previous halfway ([facility]) and gave a list of people that are allowed to receive information. List was put on chart and will be endorsed to oncoming RN for next shift.
--- NOTE | 2019-07-05 10:37 | NUR ---
RN note: Latest ABG results relayed to Dr. Horton With order to change Tidal Volume to 450 from 500. Noted and carried out.
[2019-07-05 12:02] LABS: CALCIUM, SERUM 8.5 mg/dL (8.5-10.1); CREATININE 5.8 mg/dL (0.6-1.3); MAGNESIUM 2.3 mg/dL (1.8-2.4); PHOSPHORUS 3.9 mg/dL (2.5-4.9); POTASSIUM 3.7 mmol/L (3.5-5.1)
--- NOTE | 2019-07-05 13:24 | NUR ---
RN note: Patient was seen by Dr. Amado with new orders. Insulin drip discontinued and started patient on moderate sliding scale insulin. FNS consult was ordered and done for appropriate tube feeding and MD agreed with recommendation of Nepro @ 15ml/hr for the first 24 hrs and to advance to 35mls/hr afterwards. IV fluid of D5 1/2 NS @ 100mls/hr discontinued once tube feeding is started.
[2019-07-05] MEDS ORDERED: DEXTROSE 50%-WATER 50 ML DISP.SYRIN IV PRN (13:30)
[2019-07-05] MEDS: DAKINS QUARTER STRENGTH (0.125%) 480 ML BOTTLE TOP SCH (15:30)
[2019-07-05 16:54] LABS: CALCIUM, SERUM 8.5 mg/dL (8.5-10.1); CREATININE 2.6 mg/dL (0.6-1.3); MAGNESIUM 1.9 mg/dL (1.8-2.4); PHOSPHORUS 1.8 mg/dL (2.5-4.9)
[2019-07-05 16:56] LABS: POTASSIUM 2.8 mmol/L (3.5-5.1)
--- NOTE | 2019-07-05 17:00 | NUR ---
RN NOTE: received result of Potassium level 2.8 and Phosphorus of 1.[address] Amado to relay information. Awaiting call back
[2019-07-05] MEDS: INSULIN REGULAR, HUMAN 100 UNIT/ML 3 ML VIAL SQ PRN (18:11)
--- NOTE | 2019-07-05 18:19 | NUR ---
rn note: Paged Dr. Lara ( on-call for Dr. Monroe) to report Potassium of level 2.8 and Phosphorus of 1.8 post hemodialysis. Awaiting call back
--- NOTE | 2019-07-05 18:21 | NUR ---
rn note: Call back service for Dr. Amado called back and will page once more
--- NOTE | 2019-07-05 18:34 | NUR ---
RN NOTE: DR. RADHA DUNBAR CALLED BACK AND WAS INFORMED ABOUT CURRENT POTASSIUM LEVEL OF 2.8 AND PHOSPHORUS OF 1.8. MD ACKNOWLEDGED INFORMATION AND WITH NO ORDERS GIVEN.
--- NOTE | 2019-07-05 18:58 | NUR ---
RN CLOSING NOTE: Patient in bed and asleep. Tele monitoring showing sinus rhyhm in the 90s. Isolation precaution in place for COVID-19. On Mechanical Ventilation on prescribed settings and being tolerated well. With NGT and feeding of Nepro @ 15mls/hr x 24 and advance to goal of 35mls/hr after started on shift. No pain noted on patient. IV sites clean, dry, patent and intact. IV infusion of Levophed @ 0.05mcg/kg/min being tolerated well. HD done on shift with 1L output. Dale catheter draining tea colored urine. Awaiting Vancomycin dose post HD to be delivered by pharmacy. Latest Potassium and phosphorus level to be reported. Call light in reach. Bed locked, low and at semi-spencer's position. Side rails up x3. Safety ensured and observed. Due medications given. Wound treatment done as ordered. Will endorse to oncoming shift for LEROY.
[2019-07-05] MEDS: VANCOMYCIN POST DIALYSIS 500MG IV PRN ×2 (19:49)
--- NOTE | 2019-07-05 21:13 | NUR ---
olericulture professor. initial assessment. received the pt rest on the bed, orally intubated. pt is obtunded. does not open eyes. ett 7.5,ac 16,tv 430nzx5 40%,peep 5. sat 98%. monitoring manager showing afib. rate is controlled. hob elevated. ngt feeding nephro 15ml/h,rt femoral hd cath iv lt triple lumen, levophed 0.05 mcg/kg/min, fc patent. temperature 99. will continue to monitor vitals.
[2019-07-06] VITALS (83 sets, daily range): BP systolic 80–144; BP diastolic 33–73
[2019-07-06] MEDS: INSULIN REGULAR, HUMAN 100 UNIT/ML 3 ML VIAL SQ PRN ×5 (00:13→23:20)
--- NOTE | 2019-07-06 03:14 | NUR ---
AM CARE. ORAL CARE, BED BATH GIVEN. LINEN CHANGED. REMAINING SAME VENT SETTING TOLERATED WELL. SAT 98%. NO ACUTE DISTRESS NOTED. RADIAGRAPH OPERATOR SHOWING AFIB. CONTROLLED. OGT FEEDING TLERATED WELL. HOB ELEVATED. WOUND DRESSING DONE. FC PATENT. IV LT IJ, VOPHED 0102MCG/KG/MIN, TURN AND REPOSITION Q2H. WILL CONTINUE TO MONITOR VITALS.
[2019-07-06] MEDS: AMIODARONE HCL 200 MG TABLET PO SCH ×3 (04:42→20:28)
[2019-07-06 05:05] LABS: BASOPHILS # (AUTO) 0.1 /CMM (0.0-0.2); BASOPHILS % (AUTO) 0.6 % (0.0-2.0); EOSINOPHILS % (AUTO) 0.4 % (0.0-6.0); HEMATOCRIT 25 % (39-51); HEMOGLOBIN 8.1 g/dL (13.5-17.5); LYMPHOCYTES # (AUTO) 0.8 /CMM (0.8-4.8); LYMPHOCYTES % (AUTO) 6.5 % (20.0-44.0); MEAN CORPUSCULAR HGB CONC 32 g/dl (31.0-36.0); MEAN CORPUSCULAR VOLUME 83 fL (80-96); MONOCYTES # (AUTO) 0.7 /CMM (0.1-1.30); MONOCYTES % (AUTO) 5.3 % (2.0-12.0); NEUTROPHILS # (AUTO) 10.7 /CMM (1.8-8.9); NEUTROPHILS % (AUTO) 87.2 % (43.0-81.0); PLATELET COUNT (AUTO) 229 /CMM (150-450); RED BLOOD CELL COUNT(AUTO) 3.06 MIL/uL (4.5-6.0); WHITE BLOOD COUNT (AUTO) 12.3 K/uL (4.3-11.0)
[2019-07-06] MEDS: BLOOD SUGAR DIAGNOSTIC 1 EACH STRIP IN SCH ×5 (05:21→23:19)
[2019-07-06 05:26] LABS: ALBUMIN 1.8 g/dL (3.4-5.0); BILIRUBIN,TOTAL 0.5 mg/dL (0.2-1.0); CALCIUM, SERUM 8.5 mg/dL (8.5-10.1); CREATININE 4.6 mg/dL (0.6-1.3); MAGNESIUM 2.1 mg/dL (1.8-2.4); POTASSIUM 3.4 mmol/L (3.5-5.1)
[2019-07-06 05:53] LABS: BAND % (MANUAL) 1 % (0.0-5.0); LYMPHOCYTES % (MANUAL) 5 % (16-48); MONOCYTES % (MANUAL) 6 % (0-11.0); NEUTROPHILS % (MANUAL) 88 (42-76)
[2019-07-06 07:14] LABS: ABG BASE EXCESS 6.3 mmol/L; ABG PCO2 34.2 mmHg (35.0-45.0); ABG PH 7.546 (7.350-7.450); ABG PO2 164.2 mmHg (75.0-100.0); AaDO2 81.7 mmHg; COHb 0.3 % (0.5-1.5); MetHb 0.1 % (0.0-1.5); O2Hb 98.6 % (94.0-97.0); SITE, ABG Right Radial; VENT MODE, BG AC 16 450 40% +5
--- NOTE | 2019-07-06 07:30 | NUR ---
RN NOTES RECEIVED PATIENT, WITH SPONTANEOUS EYE OPENING, UNABLE TO FOLLOW COMMANDS. ORALLY INTUBATED WITH ETT SIZE 7.5 AT 25 CM ON THE LIP THE FOLLOWING SETTINGS AC 16, TV 500, FIO2 40, PEEP 5. SATING WELL ON 99% ON VENTILATOR SUPPORT. CONTROLLED AFIBON THE MONITOR WITH HR 98 AT THIS TIME. TRIPLE LUMEN CATH ON THE LEFT SIDE OF THE NECK, IN PLACE, DRESSING INTACT. WITH ONGOING GTF OF NEPRO AT 15CC/HR, GOAL OF 35CC/HR, WILL ADJUST ACCORDINGLY. NO RESIDUAL NOTED AT THIS TIME. TUBBS CATHETER IN PLACE, NO OUTPUT NOTED AT THIS TIME. HOB ELEVATED. SRX2 UP. BED IN LOW AND LOCKED POSITION WILL CONTINUE TO MONITOR PATIENT ACCORDINGLY
[2019-07-06] MEDS: DAKINS QUARTER STRENGTH (0.125%) 480 ML BOTTLE TOP SCH (08:56)
[2019-07-06] MEDS: HEPARIN SODIUM, PORCINE 5000 UNITS/1 ML VIAL SQ SCH ×2 (08:57→20:30)
[2019-07-06] MEDS: MEROPENEM 500 MG in IV NS 0.9% 50 ML IV SCH ×2 (10:06→20:28)
--- NOTE | 2019-07-06 19:00 | NUR ---
RN NOTES ENDORSED PATIENT FOR CONTINUITY OF CARE. STILL ON VENTILATOR SUPPORT. TOLERATING CURRENT VENT SETTINGS. SATING FINE AT 99%. NO INDICATION OF ACTIVE BLEEDING NOTED. NO INDICATION OF PAIN THE PATIENT IS NOTED CALM IN BED. ALL CHANGES ADDRESSED. ALL NURSING NEEDS ATTENDED AND MET. SAFETY MEASURES IN PLACE. CALL LIGHT WITHIN REACH. ISOLATION PRECAUTION IMPLEMENTED AT ALL TIMES
--- NOTE | 2019-07-06 19:15 | NUR ---
RADIO AERIAL INSTALLER NOTE RECEIVED PATIENT IN BED RESTING WITH HOB ELEVATED. BREATHING IS EVEN AND NON LABORED, NO SOB NOTED AT THIS TIME. ON VENT AND TOLERATING WELL. ON ISOLATION FOR COVID + PER REPORT. ON BED REST. PATIENT IS ABLE TO OPEN EYES, NON VERBAL. ON TUBBS. URINE IS CLEAR AND YELLOW IN COLOR. URINE IS MINIMAL. PATIENT ON DIALYSIS, PER REPORT, NO DIALYSIS DONE TODAY. ABDOMEN IS SOFT AND NON DISTENDED. ON GT FEEDING NEPHRO RUNNING AT 35 MLS/HR. IV SITES ON LEFT IJ, AND LEFT HAND ARE CLEAN, DRY, AND PATENT. IN NO APPARENT DISTRESS NOTED AT THIS TIME. BED IS LOWERED AND LOCKED FOR SAFETY. WILL CONTINUE TO MONITOR.
--- NOTE | 2019-07-06 21:34 | NUR ---
RECEIVED PT INTUBATED WITH 7.5 ETT SECURED AT 25CM AT THE LIP VIA ANCHOR FAST. PT TOLERATING VENT SETTINGS. SX'D FOR MOD AMT OF THICK YELLOW SECRETIONS. VENT ALARMS SET AND AUDIBLE. VENT PLUGGED INTO RED OUTLET. CONTINUE [facility] VENT SUPPORT. Addendum: 07/06/19 at 2136 by JAZLYN COLEMAN RT Amended: Links added.
[2019-07-06] MEDS ORDERED: VANCOMYCIN 1 GM in IV D5W 250 ML IV ONE (22:00)
[2019-07-07] VITALS (83 sets, daily range): BP systolic 76–180; BP diastolic 36–91
[2019-07-07] MEDS: NOREPINEPHRINE 8 MG in IV NS 0.9% 242 ML IV PRN (01:59)
--- NOTE | 2019-07-07 03:30 | NUR ---
LIFE SCIENTIST NOTE PATIENT TOLERATED BED BATH WELL AT THIS TIME. NOTED BOWEL MOVEMENT. IN NO APPARENT DISTRESS NOTED AT THIS TIME. ALL WOUND CARE RENDERED. WILL CONTINUE TO MONITOR.
[2019-07-07 04:34] LABS: BASOPHILS # (AUTO) 0.1 /CMM (0.0-0.2); BASOPHILS % (AUTO) 0.6 % (0.0-2.0); EOSINOPHILS % (AUTO) 0.8 % (0.0-6.0); HEMATOCRIT 25 % (39-51); HEMOGLOBIN 8.2 g/dL (13.5-17.5); LYMPHOCYTES # (AUTO) 0.5 /CMM (0.8-4.8); LYMPHOCYTES % (AUTO) 5.4 % (20.0-44.0); MEAN CORPUSCULAR HGB CONC 32 g/dl (31.0-36.0); MEAN CORPUSCULAR VOLUME 84 fL (80-96); MONOCYTES # (AUTO) 0.6 /CMM (0.1-1.30); MONOCYTES % (AUTO) 5.9 % (2.0-12.0); NEUTROPHILS # (AUTO) 8.7 /CMM (1.8-8.9); NEUTROPHILS % (AUTO) 87.3 % (43.0-81.0); PLATELET COUNT (AUTO) 197 /CMM (150-450); WHITE BLOOD COUNT (AUTO) 9.9 K/uL (4.3-11.0)
[2019-07-07 04:48] LABS: ALBUMIN 1.7 g/dL (3.4-5.0); BILIRUBIN,TOTAL 0.5 mg/dL (0.2-1.0); CALCIUM, SERUM 8.5 mg/dL (8.5-10.1); CREATININE 5.4 mg/dL (0.6-1.3); MAGNESIUM 1.9 mg/dL (1.8-2.4); PHOSPHORUS 4.5 mg/dL (2.5-4.9); POTASSIUM 3.1 mmol/L (3.5-5.1); TOTAL PROTEIN, SERUM 6.7 g/dL (6.4-8.2)
[2019-07-07] MEDS: AMIODARONE HCL 200 MG TABLET PO SCH ×3 (05:08→21:02)
[2019-07-07] MEDS: BLOOD SUGAR DIAGNOSTIC 1 EACH STRIP IN SCH ×3 (05:51→18:25)
[2019-07-07] MEDS: INSULIN REGULAR, HUMAN 100 UNIT/ML 3 ML VIAL SQ PRN ×3 (05:52→18:26)
--- NOTE | 2019-07-07 06:53 | NUR ---
HELP DESK MANAGER NOTE PATIENT REMAINED STABLE THROUGHOUT THE NIGHT. ALL DUE MEDS GIVEN ORDERED AND TOLERATED WELL. PATIENT KEPT CLEAN, DRY, AND COMFORTABLE. REPOSITIONED Q2H. WILL ENDORSE TO AM SHIFT RN FOR CONTINUATION OF CARE.
--- NOTE | 2019-07-07 07:30 | NUR ---
N NOTES RECEIVED PATIENT BACK FROM THE ASSISTANT PLANT MANAGER NURSE,CALM IN BED. STILL ON VENTILATOR SUPPORT. TOLERATING CURRENT VENT SETTINGS. SATING FINE AT 99%. BLOOD PRESSURE APPEARS TO BE ON THE LOW SITE, WILL MONITOR CLOSELY. NO INDICATION OF PAIN NOTED. GTF OFF AT THIS TIME, IN LIUE OF THE XRAY RESULTS IN THE MORNING-WILL INFORM MD. HOB KEPT ELEVATED. SAFETY MEASURES OBSERVED AND MAINTAINED. BED IN LOW AND LOCKED POSITION. WILL CONTINUE TO MONITOR PATIENT ACCORDINGLY
[2019-07-07] MEDS: DAKINS QUARTER STRENGTH (0.125%) 480 ML BOTTLE TOP SCH (09:25)
[2019-07-07] MEDS: MEROPENEM 500 MG in IV NS 0.9% 50 ML IV SCH ×2 (09:25→21:00)
[2019-07-07] MEDS: HEPARIN SODIUM, PORCINE 5000 UNITS/1 ML VIAL SQ SCH ×2 (09:26→21:03)
--- NOTE | 2019-07-07 12:00 | NUR ---
RN NOTES INFORMED DR. GARCIA ABOUT THE CURRENT SITUATION REGARDING THE GT PLACEMENT AND ABOUT MEDICATION RECONCILIATION. OBTAINED ORDER FOR XRAY TO VERIFY PLACEMENT. ORDER NOTED AND CARRIED OUT
[2019-07-07] MEDS: POTASSIUM CHLORIDE 20 MEQ POWDER PACKET NG SCH ×2 (14:59→16:09)
[2019-07-07] MEDS: NYSTATIN (PYXIS) 500,000 UNIT/5 ML ORAL.SUSP PO SCH (16:49)
--- NOTE | 2019-07-07 17:00 | NUR ---
RN NOTES CALLED PHARMACY, SPOKE TO YARI (PHARMACIST) WITH RECOMMENDATION NOT TO GIVE VANCOMYCIN POST HD DOSE TROUGH WAS AT 25 TODAY.
--- NOTE | 2019-07-07 22:28 | NUR ---
RECEIVED PT INTUBATED WITH 7.5 ETT SECURED AT 25CM AT THE LIP VIA ANCHOR FAST. PT TOLERATING VENT SETTINGS. SX'D FOR MOD AMT OF THICK YELLOW SECRETIONS. VENT ALARMS SET AND AUDIBLE. VENT PLUGGED INTO RED OUTLET. CONTINUE [facility] VENT SUPPORT. Addendum: 07/07/19 at 2228 by JAZLYN COLEMAN RT Amended: Links added.
[2019-07-08] VITALS (24 sets, daily range): BP systolic 91–123; BP diastolic 54–77
[2019-07-08] MEDS: INSULIN REGULAR, HUMAN 100 UNIT/ML 3 ML VIAL SQ PRN ×5 (00:48→23:21)
[2019-07-08] MEDS: BLOOD SUGAR DIAGNOSTIC 1 EACH STRIP IN SCH ×5 (00:48→23:19)
[2019-07-08 04:13] LABS: BASOPHILS # (AUTO) 0.1 /CMM (0.0-0.2); BASOPHILS % (AUTO) 0.6 % (0.0-2.0); EOSINOPHILS % (AUTO) 0.8 % (0.0-6.0); HEMATOCRIT 24 % (39-51); HEMOGLOBIN 7.8 g/dL (13.5-17.5); LYMPHOCYTES # (AUTO) 0.8 /CMM (0.8-4.8); LYMPHOCYTES % (AUTO) 7.3 % (20.0-44.0); MEAN CORPUSCULAR HGB CONC 32 g/dl (31.0-36.0); MEAN CORPUSCULAR VOLUME 84 fL (80-96); MONOCYTES # (AUTO) 0.6 /CMM (0.1-1.30); MONOCYTES % (AUTO) 6.2 % (2.0-12.0); NEUTROPHILS # (AUTO) 8.7 /CMM (1.8-8.9); NEUTROPHILS % (AUTO) 85.1 % (43.0-81.0); PLATELET COUNT (AUTO) 175 /CMM (150-450); WHITE BLOOD COUNT (AUTO) 10.2 K/uL (4.3-11.0)
[2019-07-08 04:27] LABS: CALCIUM, SERUM 8.6 mg/dL (8.5-10.1); CREATININE 4.6 mg/dL (0.6-1.3); MAGNESIUM 1.9 mg/dL (1.8-2.4); PHOSPHORUS 3.4 mg/dL (2.5-4.9); POTASSIUM 3.8 mmol/L (3.5-5.1)
[2019-07-08] MEDS: AMIODARONE HCL 200 MG TABLET PO SCH ×3 (05:18→20:14)
--- NOTE | 2019-07-08 07:15 | NUR ---
ICU/CLOSING PATIENT INTUBATED WITH NO SEDATION. PATIENT IS ABLE TO OPEN EYES SPONTANEOUSLY WITH MINIMAL TRACING. SHOWING NO SIGNS OF ANY DISTRESS. PATIENT TOLERATING VENT SETTINGS ORDERED. SATURATING AT 99% WITH NO SIGNS OF ANY SOB. LIJ PATENT AND TKO INFUSING AT 10CC/HR. FC WITH VISIBLE DRAINAGE. WOUNDS CLEANED AND PICTURES TAKEN. ALL SAFETY PRECAUTIONS APPLIED. ENDORSED TO MORNING SHIFT NURSE FOR LEROY.
--- NOTE | 2019-07-08 07:35 | NUR ---
RT Pt received orally intubated on mechanical ventilation with noted settings. Pt is awake and responds to stimuli. No SOB or respiratory distress noted. Addendum: 07/08/19 at 1604 by DEANNE URBAN RT Amended: Links added.
[2019-07-08 07:59] LABS: ABG BASE EXCESS 4.2 mmol/L; ABG OXYGEN SATURATION 98.8 % (92.0-98.5); ABG PCO2 36.7 mmHg (35.0-45.0); ABG PH 7.494 (7.350-7.450); ABG PO2 142.9 mmHg (75.0-100.0); AaDO2 100.1 mmHg; COHb 0.3 % (0.5-1.5); MetHb 0.3 % (0.0-1.5); O2Hb 98.2 % (94.0-97.0); PEEP,BG 5 cm H2O; SITE, ABG Right Radial; VT, ABG 400 mL
[2019-07-08] MEDS: NYSTATIN (PYXIS) 500,000 UNIT/5 ML ORAL.SUSP PO SCH ×3 (08:13→17:00)
[2019-07-08] MEDS: HEPARIN SODIUM, PORCINE 5000 UNITS/1 ML VIAL SQ SCH ×2 (08:14→20:17)
[2019-07-08] MEDS: MEROPENEM 500 MG in IV NS 0.9% 50 ML IV SCH ×2 (08:14→21:05)
[2019-07-08] MEDS: DAKINS QUARTER STRENGTH (0.125%) 480 ML BOTTLE TOP SCH (08:15)
--- NOTE | 2019-07-08 18:49 | NUR ---
CLERICAL OFFICE Shift Summary Patient remains off sedation, off pressors. Nonverbal, opens eyes, able to nod head yes or no, sometimes able to follow command and make eye contact upon command. Tolerating current vent settings SPO2 >95, no distress or desats noted throughout shift. Tele monitor attached, afib, controlled HR 90s. No dialysis today. Wound care as ordered, turned per protocol. Dale drained 70mL this shift. Tolerating tube feedings, no residual, NEPRO @35mL/hr via R NGT. LIJ TLC infusing NS @TKO, L H 20G flushes well, R Fem HD cath intact. Insulin as ordered. Aunt Pablo updated on condition.
--- NOTE | 2019-07-08 19:30 | NUR ---
LABEL FUSER TENDER NOTES RECEIVED PATIENT IN BED INTUBATED. BREATHING NORMAL NO SOB NOTED, RESPIRATION EVEN NON LABORED. SKIN WARM AND DRY TO TOUCH. BED SIDE MONITOR READING A-FIB IN 90'S. RT NARE NGT IN PLACE NEPRO RUNNING AT 35CC/HR NO RESIDUAL NOTED TOLERATING WELL. F/C INTACT PATENT URINE DARNING TO GRAVITY. ALL SAFETY MEASURES IN PLACE, SIDE RAILS UP X2. BED IN LOW AND LOCKED POSITION. CALL LIGHT WITHIN REACH. WILL CONT TO MONITOR.
[2019-07-09] VITALS (24 sets, daily range): BP systolic 93–132; BP diastolic 53–74
[2019-07-09 04:18] LABS: BASOPHILS # (AUTO) 0.1 /CMM (0.0-0.2); BASOPHILS % (AUTO) 0.6 % (0.0-2.0); HEMATOCRIT 25 % (39-51); HEMOGLOBIN 7.9 g/dL (13.5-17.5); LYMPHOCYTES # (AUTO) 0.9 /CMM (0.8-4.8); LYMPHOCYTES % (AUTO) 10.8 % (20.0-44.0); MEAN CORPUSCULAR HGB CONC 32 g/dl (31.0-36.0); MEAN CORPUSCULAR VOLUME 85 fL (80-96); MONOCYTES # (AUTO) 0.7 /CMM (0.1-1.30); MONOCYTES % (AUTO) 8.1 % (2.0-12.0); NEUTROPHILS # (AUTO) 6.6 /CMM (1.8-8.9); NEUTROPHILS % (AUTO) 78.5 % (43.0-81.0); PLATELET COUNT (AUTO) 193 /CMM (150-450); RED BLOOD CELL COUNT(AUTO) 2.96 MIL/uL (4.5-6.0); WHITE BLOOD COUNT (AUTO) 8.4 K/uL (4.3-11.0)
[2019-07-09 04:31] LABS: CALCIUM, SERUM 8.9 mg/dL (8.5-10.1); CREATININE 5.2 mg/dL (0.6-1.3); MAGNESIUM 2.2 mg/dL (1.8-2.4); POTASSIUM 3.5 mmol/L (3.5-5.1)
[2019-07-09] MEDS: AMIODARONE HCL 200 MG TABLET PO SCH ×3 (04:52→20:10)
--- NOTE | 2019-07-09 05:00 | NUR ---
BED BATH RENDERED PATIENT TOLERATED WELL, WOUND TREATMENT DONE ORDERED.
[2019-07-09] MEDS: NEPRO 1,000 ML BOTTLE GT PRN (05:19)
[2019-07-09] MEDS: BLOOD SUGAR DIAGNOSTIC 1 EACH STRIP IN SCH ×3 (05:20→18:03)
[2019-07-09] MEDS: INSULIN REGULAR, HUMAN 100 UNIT/ML 3 ML VIAL SQ PRN ×3 (05:49→18:15)
--- NOTE | 2019-07-09 06:52 | NUR ---
CILNICAL SCIENTIST NOTES PATIENT INTUBATED NOT ON ANY SEDATION. OPEN AND CLOSED EYES. NO S/S OF DISTRESS NOTED. ON VENT SETTING TOLERATING WELL ORDERED. RESPIRATION EVEN NON LABORED. RT NARE NGT IN PLACE NEPRO RUNNING AT 35CC/HR NO RESIDUAL NOTED TOLERATING WELL. F/C INTACT PATENT URINE DARNING TO GRAVITY. ALL NEEDS ATTENDED. ALL SAFETY MEASURES IN PLACE, SIDE RAILS UP X2. BED IN LOW AND LOCKED POSITION. CALL LIGHT WITHIN REACH. WILL ENDORSE TO AM NURSE FOR LEROY.
[2019-07-09] MEDS: MEROPENEM 500 MG in IV NS 0.9% 50 ML IV SCH ×2 (08:07→20:11)
[2019-07-09] MEDS: NYSTATIN (PYXIS) 500,000 UNIT/5 ML ORAL.SUSP PO SCH ×3 (08:07→18:03)
[2019-07-09] MEDS: DAKINS QUARTER STRENGTH (0.125%) 480 ML BOTTLE TOP SCH (08:07)
[2019-07-09] MEDS: HEPARIN SODIUM, PORCINE 5000 UNITS/1 ML VIAL SQ SCH ×2 (08:10→20:11)
[2019-07-09] MEDS: VANCOMYCIN POST DIALYSIS 500MG IV PRN ×2 (18:02)
--- NOTE | 2019-07-09 18:40 | NUR ---
JOINER HELPER Shift Summary Patient remains orally intubated, no sedation, able to open eyes, make eye contact (upon command). Unable to squeeze my fingers with either hand or track. Sometimes nods head to questions? Tolerating current vent settings, FiO2 40%, SPO2 >94%, no distress noted. Tele monitor attached, SR w/ BBB HR 80s, BP WNL, no pressors. OGT in place, verified via auscultation, nepro@35mL/hr, no residual. No s/s aspiration. Dialyzed today, 0mL out, post HD vanco given. Dale catheter draining mikhail urine 75mL total for shift. L IJ line NS@TKO, L hand 20G flushes well, R fem HD cath c/d/i. Wound care completed, turned per protocol.
--- NOTE | 2019-07-09 19:30 | NUR ---
NONPROFIT MANAGER NOTES RECEIVED PATIENT INTUBATED NOT ON ANY SEDATION ABLE TO MAKE EYE CONTACT BUT UNABLE TO FOLLOW DIRECTIONS. CONTINUES ON VENT SETTING TOLERATING WELL ORDERED. TELE MONITOR READING SR.NGT IN PLACE FEEDING TOLERATING WELL. F/C INTACT DARNING WELL. IV SITES INTACT PATENT FLUSHING WELL. SKIN WARM AND DRY TO TOUCH. SAFETY MEASURES IN PLACE, CALL LIGHT WITHIN REACH. WILL CONT TO MONITOR.
[2019-07-10] VITALS (36 sets, daily range): BP systolic 98–163; BP diastolic 58–101
[2019-07-10] MEDS: BLOOD SUGAR DIAGNOSTIC 1 EACH STRIP IN SCH ×4 (00:07→19:09)
[2019-07-10] MEDS: INSULIN REGULAR, HUMAN 100 UNIT/ML 3 ML VIAL SQ PRN ×4 (00:18→19:11)
[2019-07-10] MEDS: MORPHINE SULFATE INJ 2 MG/ML DISP.SYRIN IV PRN (02:14)
[2019-07-10 05:06] LABS: CALCIUM, SERUM 8.7 mg/dL (8.5-10.1); CREATININE 4.6 mg/dL (0.6-1.3); POTASSIUM 3.4 mmol/L (3.5-5.1)
[2019-07-10] MEDS: AMIODARONE HCL 200 MG TABLET PO SCH ×3 (05:24→20:12)
--- NOTE | 2019-07-10 07:09 | NUR ---
PHYSIOTHERAPY AIDE NOTES NO ACUTE CHANGES NOTED DURING SHIFT. BIPAP SETTING TOLERATING WELL NO EPISODE OF DESATURATION NOTED. VITAL SIGNS REMAINED WNL. ROUTING MEDICATIONS WERE GIVEN ALONG WITH PRN'S TOLERATED WELL. WOUND CARE DONE ORDERED. IV'S INTACT, PATENT FLUSHING WELL. RT HAND SOFT RESTRAIN IN PLACE FOR SAFETY AND CHECKED FOR CIRCULATION AND PULSE. WILL ENDORSE TO AM NURSE FOR LEROY.
--- NOTE | 2019-07-10 07:30 | NUR ---
SET UP MECHANIC COATING MACHINES INITIAL NOTE RECEIVED PATIENT AWAKE, PASSIVE, NO S/S OF PAIN OR DISCOMFORT. NO DISTRESS NOTED. TOLERATING CURRENT VENT SETTINGS. ON TELE MONITOR SR WITH BBB. OGT PATENT, INTACT, IN PLACE, TOLERATING GTF, NO RESIDUAL NOTED. SKIN WARM AND DRY TO TOUCH. F/C PATEN, DRAINING BY GRAVITY. COVID PRECAUTIONS OBSERVED. HOB ELEVATED. SIDE RAILS UP AND LOCKED. BED KEPT AT LOWEST POSITION. WILL CONTINUE TO MONITOR.
[2019-07-10 07:54] LABS: ABG BASE EXCESS 1.9 mmol/L; ABG OXYGEN SATURATION 96.7 % (92.0-98.5); ABG PCO2 35.8 mmHg (35.0-45.0); ABG PH 7.471 (7.350-7.450); ABG PO2 89.8 mmHg (75.0-100.0); COHb 0.3 % (0.5-1.5); MetHb 0.5 % (0.0-1.5); O2Hb 95.9 % (94.0-97.0); PEEP,BG 5 cm H2O; SITE, ABG Right Radial; VT, ABG 400 mL
[2019-07-10] MEDS: FAMOTIDINE/PF INJ 20 MG/2 ML VIAL IV SCH ×2 (08:25→20:11)
[2019-07-10] MEDS: HEPARIN SODIUM, PORCINE 5000 UNITS/1 ML VIAL SQ SCH ×2 (08:26→20:13)
[2019-07-10] MEDS: NYSTATIN (PYXIS) 500,000 UNIT/5 ML ORAL.SUSP PO SCH ×3 (08:26→18:37)
[2019-07-10] MEDS: DAKINS QUARTER STRENGTH (0.125%) 480 ML BOTTLE TOP SCH (08:31)
[2019-07-10 09:34] LABS: ABG BASE EXCESS 1.5 mmol/L; ABG OXYGEN SATURATION 97.6 % (92.0-98.5); ABG PCO2 34.2 mmHg (35.0-45.0); ABG PO2 99.1 mmHg (75.0-100.0); AaDO2 74.6 mmHg; COHb 0.4 % (0.5-1.5); MetHb 0.1 % (0.0-1.5); O2Hb 97.1 % (94.0-97.0); PEEP,BG 5 cm H2O; SITE, ABG Right Radial; VENT MODE, BG SIMV PS 15; VT, ABG 400 mL
--- NOTE | 2019-07-10 09:46 | NUR ---
WORKFORCE SPECIALIST NOTE SEEN AND EXAMINED BY CORNELIUS JOYCE SEEN WITH ORDERS TO EXTUBATE. RT AT BEDSIDE AND AWARE.
[2019-07-10] MEDS ORDERED: DC PROPOFOL WHEN EXTUBATED XX PRN ×2 (10:00→11:00)
--- NOTE | 2019-07-10 10:21 | NUR ---
agriculture science teacher note patient s/p extubation, seen by dr oro, placed on [id number] via nc. will continue to monitor.
[2019-07-10] MEDS ORDERED: IV D5/ 0.9% NACL 1,000 ML IV SCH (12:30)
[2019-07-10] MEDS: NEPRO 1,000 ML BOTTLE GT PRN (14:05)
--- NOTE | 2019-07-10 19:30 | NUR ---
PRIVATE DETECTIVE NOTES RECEIVED PATIENT IN BED EXTUBATED. PATIENT ABLE TO MAKE EYE CONTACT BUT UNABLE TO FOLLOW DIRECTIONS. PATIENT CURRENTLY ON OXYGEN 4L/M VIA NC SATURATING 100%. TELE MONITOR READING SR WITH BBB. RT NARE NGT IN PLACE FEEDING TOLERATING WELL. F/C INTACT DARNING WELL. IV SITES INTACT PATENT FLUSHING WELL. SKIN WARM AND DRY TO TOUCH. SAFETY MEASURES IN PLACE, CALL LIGHT WITHIN REACH. WILL CONT TO MONITOR.
[2019-07-11] VITALS (26 sets, daily range): BP systolic 120–151; BP diastolic 57–133
[2019-07-11] MEDS: BLOOD SUGAR DIAGNOSTIC 1 EACH STRIP IN SCH ×4 (00:01→17:47)
[2019-07-11] MEDS: INSULIN REGULAR, HUMAN 100 UNIT/ML 3 ML VIAL SQ PRN ×4 (00:22→17:49)
[2019-07-11] MEDS: MORPHINE SULFATE INJ 2 MG/ML DISP.SYRIN IV PRN ×2 (00:25→09:05)
[2019-07-11 04:04] LABS: BASOPHILS # (AUTO) 0.1 /CMM (0.0-0.2); BASOPHILS % (AUTO) 0.8 % (0.0-2.0); HEMATOCRIT 24 % (39-51); HEMOGLOBIN 7.5 g/dL (13.5-17.5); LYMPHOCYTES # (AUTO) 0.9 /CMM (0.8-4.8); LYMPHOCYTES % (AUTO) 13.9 % (20.0-44.0); MEAN CORPUSCULAR HGB CONC 32 g/dl (31.0-36.0); MEAN CORPUSCULAR VOLUME 84 fL (80-96); MONOCYTES # (AUTO) 0.6 /CMM (0.1-1.30); MONOCYTES % (AUTO) 8.8 % (2.0-12.0); NEUTROPHILS # (AUTO) 4.6 /CMM (1.8-8.9); NEUTROPHILS % (AUTO) 73.5 % (43.0-81.0); PLATELET COUNT (AUTO) 231 /CMM (150-450); RED BLOOD CELL COUNT(AUTO) 2.81 MIL/uL (4.5-6.0); WHITE BLOOD COUNT (AUTO) 6.3 K/uL (4.3-11.0)
[2019-07-11 04:19] LABS: CALCIUM, SERUM 8.8 mg/dL (8.5-10.1); CREATININE 5.1 mg/dL (0.6-1.3); MAGNESIUM 2.1 mg/dL (1.8-2.4); PHOSPHORUS 4.6 mg/dL (2.5-4.9); POTASSIUM 3.4 mmol/L (3.5-5.1)
[2019-07-11] MEDS: AMIODARONE HCL 200 MG TABLET PO SCH ×3 (04:49→17:47)
--- NOTE | 2019-07-11 07:02 | NUR ---
AUTOMATIC PINSETTER ADJUSTER NOTES NO CHANGES NOTED THOUGHT OUT THE SHIFT. BREATHING NORMAL NO SOB NOTED, RESPIRATION EVEN NON LABORED. TELE MONITOR READING SR WITH BBB. 4L OXYGEN TOLERATING WELL, NO EPISODE OF DESATURATION NOTED. RT NARE NGT IN PLACE FEEDING TOLERATING WELL. F/C INTACT DARNING WELL. IV SITES INTACT PATENT FLUSHING WELL. SKIN WARM AND DRY TO TOUCH. SAFETY MEASURES IN PLACE, CALL LIGHT WITHIN REACH. WILL ENDORSE TO AM SHIFT.
[2019-07-11] MEDS: NYSTATIN (PYXIS) 500,000 UNIT/5 ML ORAL.SUSP PO SCH ×3 (09:00→17:10)
[2019-07-11] MEDS: FAMOTIDINE/PF INJ 20 MG/2 ML VIAL IV SCH ×2 (09:01→21:18)
[2019-07-11] MEDS: HEPARIN SODIUM, PORCINE 5000 UNITS/1 ML VIAL SQ SCH (09:01)
[2019-07-11] MEDS: DAKINS QUARTER STRENGTH (0.125%) 480 ML BOTTLE TOP SCH (09:05)
--- NOTE | 2019-07-11 09:52 | NUR ---
DIRECTOR OF INFORMATICS NOTE SEEN AND EXAMINED BY DR ANDERS, WITH ORDERS TO DOWNGRADE IF DR CARLISLE OK WITH IT. PER DR CARLISLE TRANSFER TO DALIA.
--- NOTE | 2019-07-11 09:57 | NUR ---
MOBILE PLANT OPERATORS NOTE PATIENT FAILED SWALLOW EVAL
--- NOTE | 2019-07-11 11:30 | NUR ---
STEEL DETAILER NOTE DIALYSIS NURSE AT BEDSIDE
--- NOTE | 2019-07-11 12:40 | NUR ---
LITHOGRAPHIC ETCHER NOTE PATIENT COMPLETED DIALYSIS, TOLERATED WELL WITH 2LITERS OUT
--- NOTE | 2019-07-11 13:38 | NUR ---
agricultural research technologist note report give to joann nurse miguel
--- NOTE | 2019-07-11 13:39 | NUR ---
curriculum manager note called dietary regarding prostat order, they will send prostat to joann
--- NOTE | 2019-07-11 14:15 | NUR ---
PATIENT TRANSFERRED FROM ICU. RECEIVED REPORT FROM NIMO DOWNS.
--- NOTE | 2019-07-11 14:31 | NUR ---
GAS MASK ASSEMBLER NOTE PATIENT TRANSFERRED TO ROOM 116-1 ACLS PROTOCOL VIA BED. ALL BELONGINGS WITH PATIENT.
--- NOTE | 2019-07-11 15:56 | NUR ---
CONTACTED NUTRITION TO F/U WITH PROSTAT, THEY WILL BE BRINGING IT IN WITH THE DINNER TRAYS. AWAITING ARRIVAL.
[2019-07-11] MEDS: PROSOURCE / PROSTAT (PYXIS) 30 ML UDC GT SCH ×2 (17:11→17:47)
--- NOTE | 2019-07-11 19:03 | NUR ---
RN CLOSING NOTE: PATIENT REMAINS IN BED. NO SIGNS OF ACUTE DISTRESS/ RESPIRATORY DISTRESS NOTED. TELE MONITOR SR IN THE 80S W/ BBB SAFETY MEASURES IMPLEMENTED, BED IN LOWEST POSITION, LOCKED, SIDE RAILS UP, CALL LIGHT WITHIN REACH. WILL ENDORSE TO ONCOMING SHIFT RN FOR CONTINUITY OF CARE.
[2019-07-12] VITALS: BP 123/71
[2019-07-12] MEDS: INSULIN REGULAR, HUMAN 100 UNIT/ML 3 ML VIAL SQ PRN ×4 (00:03→17:45)
[2019-07-12] MEDS: BLOOD SUGAR DIAGNOSTIC 1 EACH STRIP IN SCH ×4 (00:04→17:43)
[2019-07-12 04:00] VITALS: BP 128/71
[2019-07-12 06:12] LABS: BASOPHILS % (AUTO) 0.5 % (0.0-2.0); EOSINOPHILS % (AUTO) 2.2 % (0.0-6.0); HEMATOCRIT 26 % (39-51); HEMOGLOBIN 8.2 g/dL (13.5-17.5); LYMPHOCYTES % (AUTO) 14.8 % (20.0-44.0); MEAN CORPUSCULAR HGB CONC 32 g/dl (31.0-36.0); MEAN CORPUSCULAR VOLUME 83 fL (80-96); MONOCYTES # (AUTO) 0.4 /CMM (0.1-1.30); MONOCYTES % (AUTO) 6.3 % (2.0-12.0); NEUTROPHILS # (AUTO) 5.3 /CMM (1.8-8.9); NEUTROPHILS % (AUTO) 76.2 % (43.0-81.0); PLATELET COUNT (AUTO) 264 /CMM (150-450); RED BLOOD CELL COUNT(AUTO) 3.09 MIL/uL (4.5-6.0); WHITE BLOOD COUNT (AUTO) 6.9 K/uL (4.3-11.0)
--- NOTE | 2019-07-12 06:34 | NUR ---
RN note In bed lying comfortably with no distress noted. Breathing even and unlabored. On 4lpm O2 via nasal cannula tolerating well. No complaint of pain or discomfort. No significant change of condition noted. Will endorse to next shift for continuity of care.
[2019-07-12 06:42] LABS: CREATININE 5.1 mg/dL (0.6-1.3); POTASSIUM 3.5 mmol/L (3.5-5.1)
[2019-07-12 08:00] VITALS: BP_SYST 121; BP_SYST 152; BP_DIAS 62; BP_DIAS 82
[2019-07-12] MEDS: NYSTATIN (PYXIS) 500,000 UNIT/5 ML ORAL.SUSP PO SCH ×3 (08:23→17:12)
[2019-07-12] MEDS: FAMOTIDINE/PF INJ 20 MG/2 ML VIAL IV SCH ×2 (08:24→21:31)
[2019-07-12] MEDS: DAKINS QUARTER STRENGTH (0.125%) 480 ML BOTTLE TOP SCH (08:24)
[2019-07-12] MEDS: AMIODARONE HCL 200 MG TABLET PO SCH ×2 (08:24→17:13)
[2019-07-12] MEDS: PROSOURCE / PROSTAT (PYXIS) 30 ML UDC GT SCH ×3 (08:24→17:13)
[2019-07-12] MEDS: HEPARIN SODIUM, PORCINE 5000 UNITS/1 ML VIAL SQ SCH ×2 (09:23→21:32)
--- NOTE | 2019-07-12 10:31 | NUR ---
RN NOTE 0715: Received patient lethargic. Tracks voice but does not follow commands at this time. On 4LPM of O2 via NC, tolerated. No respiratory distress noted at this time. With NGT intact, TF tolerated. Kept HOB elevated. On Iso prec for Covid, maintained and observed. Dale cath intact, with good UOP. 0950: S/E by ST. Still lethargic, but per ST, mentation improved from yesterday. ST rec to continue TF for now and will reeval on Monday. 1030: No any significant changes noted at this time. will continue POC.
[2019-07-12 12:00] VITALS: BP 141/72
[2019-07-12 16:00] VITALS: BP 116/68
--- NOTE | 2019-07-12 17:28 | NUR ---
RN NOTE With episode of removing NGT, placed new right NGT, with good gurgling sound during auscultation. Obtained order for PATROL COMMANDER restraints for safety.
[2019-07-12 20:00] VITALS: BP 116/73
--- NOTE | 2019-07-12 20:00 | NUR ---
DALIA RN NOTES RECEIVED PTS IN BED AWAKE AND RESPONSIVE ,NO SOB NO DISTRESS NOTED, RESPIRATION EVEN NON LABORED. TELE MONITOR READING SR WITH BBB. 2L OXYGEN TOLERATING WELL VIA NC SATING 97%, NO EPISODE OF DESATURATION NOTED. HOB ELEVATED FOR ASPIRATION PRECAUTION.RT NARE NGT IN PLACE NEPHRO FEEDING AT 35CC/HR TOLERATING WELL.NO RESIDUAL NOTED . F/C INTACT DRAINING WITH YELLOWISH URINE OUTPUT WELL. IV SITES INTACT PATENT FLUSHING WELL.WITH LEFT IJ INTACT AND PATENT. RIGHT FEMORAL HD ACCESS INTACT AND PATENT, SKIN WARM AND DRY TO TOUCH. SAFETY MEASURES IN PLACE, CALL LIGHT WITHIN REACH. ALL NEEDS ATTENDED TOO, V/S STABLE AFEBRILE PTS IS COVID POSITIVE PRECAUTIONARY PRESSURES OBSERVED AT ALL TIMES. WILL CONTINUE TO MONITOR .
[2019-07-13] VITALS: BP 115/73
--- NOTE | 2019-07-13 | NUR ---
joann rn notes blood sugar at 12mn is 189 mg/dl 3 units of regular insulin per sliding scale given.
[2019-07-13] MEDS: BLOOD SUGAR DIAGNOSTIC 1 EACH STRIP IN SCH ×4 (00:02→18:31)
[2019-07-13] MEDS: INSULIN REGULAR, HUMAN 100 UNIT/ML 3 ML VIAL SQ PRN ×4 (00:06→18:30)
[2019-07-13 04:00] VITALS: BP 129/81
--- NOTE | 2019-07-13 06:00 | NUR ---
joann rn notes blood sugar at 6am is 176 mg /dl 3 units of regular insulin given per sliding scale.
[2019-07-13] MEDS: NEPRO 1,000 ML BOTTLE GT PRN (06:10)
--- NOTE | 2019-07-13 06:42 | NUR ---
joann rn notes. pts remains in bed awake and responsive v/s stable afebrile no sob no distress noted , continue on gt feeding nephro 35cc/hr tolerated well no residual noted. wound treatment done no bleeding noted , will endorse to rn day shift for continuity of care.
[2019-07-13 07:00] LABS: CALCIUM, SERUM 9.1 mg/dL (8.5-10.1); MAGNESIUM 2.2 mg/dL (1.8-2.4); PHOSPHORUS 5.4 mg/dL (2.5-4.9); POTASSIUM 3.7 mmol/L (3.5-5.1)
[2019-07-13 07:01] LABS: BASOPHILS % (AUTO) 0.4 % (0.0-2.0); EOSINOPHILS % (AUTO) 1.9 % (0.0-6.0); HEMATOCRIT 27 % (39-51); HEMOGLOBIN 8.7 g/dL (13.5-17.5); LYMPHOCYTES % (AUTO) 14.7 % (20.0-44.0); MEAN CORPUSCULAR HGB CONC 32 g/dl (31.0-36.0); MEAN CORPUSCULAR VOLUME 84 fL (80-96); MONOCYTES # (AUTO) 0.4 /CMM (0.1-1.30); MONOCYTES % (AUTO) 5.6 % (2.0-12.0); NEUTROPHILS # (AUTO) 5.3 /CMM (1.8-8.9); NEUTROPHILS % (AUTO) 77.4 % (43.0-81.0); PLATELET COUNT (AUTO) 306 /CMM (150-450); RED BLOOD CELL COUNT(AUTO) 3.27 MIL/uL (4.5-6.0); WHITE BLOOD COUNT (AUTO) 6.9 K/uL (4.3-11.0)
--- NOTE | 2019-07-13 07:34 | NUR ---
RN OPENING NOTES RECEIVED PATIENT RESTING IN BED COMFORTABLY, NO S/X OF DISTRESS. PT IS AOX1, NON-VERBAL, AND BED BOUND. HE IS ON 2L OF OXYGEN VIA NC, TOLERATING WELL. TELE MONITOR SHOWING SR WITH BBB. MULTIPLE WOUNDS PRESENT, WILL ADDRESS PER WOUND CARE PLAN. NGT IS PATENT AND INTACT, RUNNING NEPHRO AT 35 ML.HR. IV SITE ON R HAND 20 G AND LEFT IJ TLC ARE PATENT AND INTACT. R FEMORAL HD CATH. SAFETY MEASURES HAVE BEEN IMPLEMENTED, CALL LIGHT IS WITHIN REACH, BED IS IN LOWEST AND LOCKED POSITION, SIDE RAILS UP X2, WILL CONTINUE TO MONITOR FOR ANY CHANGES.
[2019-07-13 08:00] VITALS: BP 133/82
[2019-07-13] MEDS: AMIODARONE HCL 200 MG TABLET PO SCH ×2 (09:00→16:56)
--- NOTE | 2019-07-13 09:00 | NUR ---
RN NOTES PT WAS NOT DIALZYED THIS AM, HD CATH NOT WORKING. PER SOCCER REFEREE, CONSULTING DATABASE ADMINISTRATOR MADE AWARE, WILL CONTINUE TO MONITOR FOR ANY CHANGES.
[2019-07-13] MEDS: NYSTATIN (PYXIS) 500,000 UNIT/5 ML ORAL.SUSP PO SCH ×3 (09:38→16:08)
[2019-07-13] MEDS: FAMOTIDINE/PF INJ 20 MG/2 ML VIAL IV SCH ×2 (09:38→21:19)
[2019-07-13] MEDS: DAKINS QUARTER STRENGTH (0.125%) 480 ML BOTTLE TOP SCH (09:40)
[2019-07-13] MEDS: HEPARIN SODIUM, PORCINE 5000 UNITS/1 ML VIAL SQ SCH ×2 (09:40→21:36)
[2019-07-13] MEDS: PROSOURCE / PROSTAT (PYXIS) 30 ML UDC GT SCH ×3 (09:41→16:08)
[2019-07-13 12:00] VITALS: BP 124/70
[2019-07-13 16:00] VITALS: BP 118/68
--- NOTE | 2019-07-13 18:56 | NUR ---
RN CLOSING NOTES PATIENT IS RESTING IN BED COMFORTABLY, ON 2L OF OXYGEN VIA NC. PT DID NOT HAVE HD TODAY, HD CATH NOT WORKING. DR ANDERS MADE AWARE DURING ROUNDS. COVID ISOLATION HAS BEEN IMPLEMENTED AND ENFORCED. PT NEEDS HAVE BEEN MET, VITAL SIGNS ARE STABLE, NO ACUTE CHANGES OCCURRED THROUGHOUT THE SHIFT. SAFETY MEASURES HAVE BEEN IMPLEMENTED, CALL LIGHT IS WITHIN REACH, BED IS IN LOWEST AND LOCKED POSITION, SIDE RAILS UP X2, PT WILL BE ENDORSED TO NIGHTSHIFT RN FOR LEROY.
[2019-07-13 20:00] VITALS: BP 136/75
[2019-07-14] VITALS: BP 155/76
[2019-07-14] MEDS: BLOOD SUGAR DIAGNOSTIC 1 EACH STRIP IN SCH ×4 (01:03→17:41)
[2019-07-14] MEDS: INSULIN REGULAR, HUMAN 100 UNIT/ML 3 ML VIAL SQ PRN ×4 (01:06→17:54)
[2019-07-14 04:00] VITALS: BP 158/87
[2019-07-14] MEDS: NEPRO 1,000 ML BOTTLE GT PRN (05:45)
[2019-07-14 08:00] VITALS: BP 153/86
--- NOTE | 2019-07-14 08:00 | NUR ---
INITIAL NOTES,AM RECEIVED REPORT FROM NIGHT NURSE. PT OPENS EYES DOES NOT FOLLOW COMMANDS. ON 2LITERS NASAL CANULA NO ACUTE DISTRESS NOTED AT THIS TIME. SINUS ON TELE. LEFT IJ AND PIV PATENT AND INTACT, NO S/S OF INFECTION OR INFILTRATION NOTED. NG TUBE IN PLACE, PLACEMENT VERIFIED, TUBE FEEDING INFUSING ORDERED. ALL NEEDS WILL BE ATTENDED TO, SAFETY MEASURES TAKEN, BED IN LOW POSITION, SIDE RAILS UP, CALL LIGHT WITHIN REACH.
[2019-07-14] MEDS: FAMOTIDINE/PF INJ 20 MG/2 ML VIAL IV SCH ×2 (08:17→20:08)
[2019-07-14] MEDS: NYSTATIN (PYXIS) 500,000 UNIT/5 ML ORAL.SUSP PO SCH ×3 (08:17→17:40)
[2019-07-14] MEDS: AMIODARONE HCL 200 MG TABLET PO SCH ×2 (08:18→17:40)
[2019-07-14] MEDS: PROSOURCE / PROSTAT (PYXIS) 30 ML UDC GT SCH ×3 (08:18→17:41)
[2019-07-14] MEDS: HEPARIN SODIUM, PORCINE 5000 UNITS/1 ML VIAL SQ SCH ×2 (08:19→20:08)
[2019-07-14] MEDS: DAKINS QUARTER STRENGTH (0.125%) 480 ML BOTTLE TOP SCH (08:19)
[2019-07-14 12:00] VITALS: BP 158/78
[2019-07-14 16:00] VITALS: BP 118/75
--- NOTE | 2019-07-14 19:20 | NUR ---
ICU/RN: ENDING NOTES,AM REPORT ENDORSED TO NIGHT NURSE. PT ALERT, ON 2LITERS NASAL CANULA, NO DISTRESS. ALL NEEDS ATTENDED TO. HD DONE TODAY, HD CATH WORKING, CLEANING ONLY. ALL NEEDS ATTENDED TO, SAFETY MEASURES TAKEN BED IN LOW POSITION. BED BATH GIVEN, ALL NEEDS ATTENDED TO
--- NOTE | 2019-07-14 19:30 | NUR ---
PM RN OPENING NOTES, RECEIVED PATIENT IN BED AWAKE, A/OX1. OPENS EYES BUT DOES NOT FOLLOW COMMANDS. ON 2LITERS NASAL CANULA TOLERATING WELL, NO SOB OR ACUTE DISTRESS NOTED AT THIS TIME. SINUS ON TELE. COVID (+), ISOLATION IMPLEMENTED. LEFT IJ TKO AND RIGHT FEM HD CATH PATENT AND INTACT. NO S/S OF INFILTRATION NOTED. NG TUBE IN PLACE, RUNNING NEPRO @35ML/HR. SAFETY MEASURES TAKEN, BED IN LOW/LOCKED POSITION, SIDE RAILS UP, CALL LIGHT WITHIN REACH. WILL CONTINUE TO MONITOR THE PATIENT CLOSELY.
[2019-07-14 20:00] VITALS: BP 135/72
[2019-07-15] VITALS (7 sets, daily range): BP systolic 111–154; BP diastolic 70–95
[2019-07-15] MEDS: BLOOD SUGAR DIAGNOSTIC 1 EACH STRIP IN SCH ×4 (00:50→17:40)
[2019-07-15] MEDS: INSULIN REGULAR, HUMAN 100 UNIT/ML 3 ML VIAL SQ PRN ×4 (00:51→17:44)
[2019-07-15 06:35] LABS: BASOPHILS # (AUTO) 0.1 /CMM (0.0-0.2); BASOPHILS % (AUTO) 0.8 % (0.0-2.0); EOSINOPHILS % (AUTO) 1.8 % (0.0-6.0); HEMATOCRIT 24 % (39-51); HEMOGLOBIN 7.6 g/dL (13.5-17.5); LYMPHOCYTES # (AUTO) 1.3 /CMM (0.8-4.8); LYMPHOCYTES % (AUTO) 14.1 % (20.0-44.0); MEAN CORPUSCULAR HGB CONC 32 g/dl (31.0-36.0); MEAN CORPUSCULAR VOLUME 84 fL (80-96); MONOCYTES # (AUTO) 0.4 /CMM (0.1-1.30); MONOCYTES % (AUTO) 4.4 % (2.0-12.0); NEUTROPHILS # (AUTO) 7.5 /CMM (1.8-8.9); NEUTROPHILS % (AUTO) 78.9 % (43.0-81.0); PLATELET COUNT (AUTO) 302 /CMM (150-450); RED BLOOD CELL COUNT(AUTO) 2.79 MIL/uL (4.5-6.0); WHITE BLOOD COUNT (AUTO) 9.5 K/uL (4.3-11.0)
[2019-07-15 06:54] LABS: CALCIUM, SERUM 8.9 mg/dL (8.5-10.1); CREATININE 3.7 mg/dL (0.6-1.3); MAGNESIUM 2.1 mg/dL (1.8-2.4); PHOSPHORUS 4.1 mg/dL (2.5-4.9); POTASSIUM 4.1 mmol/L (3.5-5.1)
--- NOTE | 2019-07-15 06:55 | NUR ---
PM RN CLOSING NOTES, PATIENT IN BED RESTING, A/OX1. OPENS EYES BUT DOES NOT FOLLOW COMMANDS. ON 2LITERS NASAL CANULA TOLERATING WELL, NO SOB OR ACUTE DISTRESS NOTED AT THIS TIME. SR ON TELE MONITOR. COVID (+), ISOLATION IMPLEMENTED. LEFT IJ TKO AND RIGHT FEM HD CATH PATENT AND INTACT. NO S/S OF INFILTRATION NOTED. NG TUBE IN PLACE, RUNNING NEPRO @35ML/HR. SAFETY MEASURES TAKEN, BED IN LOW/LOCKED POSITION, SIDE RAILS UP, CALL LIGHT WITHIN REACH. WILL ENDORSE THE PATIENT TO AM RN FOR LEROY.
--- NOTE | 2019-07-15 07:00 | NUR ---
EXPERIMENTAL MECHANIC SPACECRAFT RECEIVED PATIENT IN BED, PATIENT IS AWAKE AND OPENS EYES A/OX 1. PATIENT TDOES NOT FOLLOW COMMANDS , NASAL CANNULA TOLERATING OXYGEN WELL, NO SOB , OR ACUTE RESPIRATORY DISTRESS NOTED AT THIS TIME. ISOLATION FOR COVID PATIENT IS COVID +. LEFT IK, TKO RIGHT FEM HD CATH PATENT,INTACT, FLUSHED. NGT TUBE WITH NEPO @ 35 ML/HR BED LOCKED LOWEST POSITION CALL LIGHT WITH IN REACHALL SAFETY MEASURES IMPLEMENTED PER HOSPITAL POLICY.
[2019-07-15] MEDS: NEPRO 1,000 ML BOTTLE GT PRN (07:24)
[2019-07-15] MEDS: NYSTATIN (PYXIS) 500,000 UNIT/5 ML ORAL.SUSP PO SCH ×3 (09:53→17:39)
[2019-07-15] MEDS: FAMOTIDINE/PF INJ 20 MG/2 ML VIAL IV SCH ×2 (09:53→21:24)
[2019-07-15] MEDS: HEPARIN SODIUM, PORCINE 5000 UNITS/1 ML VIAL SQ SCH ×2 (09:54→21:33)
[2019-07-15] MEDS: DAKINS QUARTER STRENGTH (0.125%) 480 ML BOTTLE TOP SCH (09:54)
[2019-07-15] MEDS: PROSOURCE / PROSTAT (PYXIS) 30 ML UDC GT SCH ×3 (09:54→17:39)
[2019-07-15] MEDS: AMIODARONE HCL 200 MG TABLET PO SCH ×2 (09:58→17:39)
--- NOTE | 2019-07-15 20:45 | NUR ---
RN NOTE CLARIFICATION OF ORDER: FULL LIQUID DIET. HOLD TUBE FEEDING. LEAVE NGT IN PLACE UNTIL DIETARY ASSESSMENT ON 07/16/2019.
--- NOTE | 2019-07-15 22:03 | NUR ---
RN NOTE ENDORSED TO NIMO GRAY FOR CONTINUATION OF CARE.
[2019-07-16] VITALS (7 sets, daily range): BP systolic 116–145; BP diastolic 69–81
[2019-07-16] MEDS: BLOOD SUGAR DIAGNOSTIC 1 EACH STRIP IN SCH ×4 (01:01→17:10)
--- NOTE | 2019-07-16 01:01 | NUR ---
HELD PATIENTS INSULIN WHEN CHECKED BS AT 0000. BS IS 136 AND PATIENT IS NOT EATING AND NOT ON ANY FEEDING AT THIS TIME. WILL CONTINUE TO MONITOR.
--- NOTE | 2019-07-16 06:31 | NUR ---
RN CLOSING NOTES PATIENT REMAINS IN STABLE CONDITION,ALERT ORIENTED X1 BREATHING IS EVEN AND UNLABORED NO FEVER NO PAIN NOT ACUTE DISTRESS NOTED,KEPT CLEAN AND DRY ALL THE TIME,REPOSITION EVERY 2 HOURS,ALL NEEDS ATTENDED,ENDORSE NEXT COMING SHIFT.
[2019-07-16 06:35] LABS: BASOPHILS # (AUTO) 0.1 /CMM (0.0-0.2); BASOPHILS % (AUTO) 0.9 % (0.0-2.0); EOSINOPHILS % (AUTO) 1.9 % (0.0-6.0); HEMATOCRIT 24 % (39-51); HEMOGLOBIN 7.8 g/dL (13.5-17.5); LYMPHOCYTES % (AUTO) 13.4 % (20.0-44.0); MEAN CORPUSCULAR HGB CONC 32 g/dl (31.0-36.0); MEAN CORPUSCULAR VOLUME 84 fL (80-96); MONOCYTES # (AUTO) 0.3 /CMM (0.1-1.30); MONOCYTES % (AUTO) 3.9 % (2.0-12.0); NEUTROPHILS % (AUTO) 79.9 % (43.0-81.0); PLATELET COUNT (AUTO) 300 /CMM (150-450); RED BLOOD CELL COUNT(AUTO) 2.86 MIL/uL (4.5-6.0); WHITE BLOOD COUNT (AUTO) 7.6 K/uL (4.3-11.0)
[2019-07-16 06:50] LABS: CALCIUM, SERUM 8.9 mg/dL (8.5-10.1); CREATININE 3.8 mg/dL (0.6-1.3); MAGNESIUM 2.1 mg/dL (1.8-2.4); PHOSPHORUS 4.4 mg/dL (2.5-4.9); POTASSIUM 3.5 mmol/L (3.5-5.1)
[2019-07-16] MEDS: NYSTATIN (PYXIS) 500,000 UNIT/5 ML ORAL.SUSP PO SCH ×3 (08:27→16:43)
[2019-07-16] MEDS: FAMOTIDINE/PF INJ 20 MG/2 ML VIAL IV SCH ×2 (08:27→21:17)
[2019-07-16] MEDS: HEPARIN SODIUM, PORCINE 5000 UNITS/1 ML VIAL SQ SCH ×2 (08:28→21:18)
[2019-07-16] MEDS: AMIODARONE HCL 200 MG TABLET PO SCH ×2 (08:28→16:38)
[2019-07-16] MEDS: DAKINS QUARTER STRENGTH (0.125%) 480 ML BOTTLE TOP SCH (08:29)
[2019-07-16] MEDS: PROSOURCE / PROSTAT (PYXIS) 30 ML UDC GT SCH ×3 (08:31→16:38)
--- NOTE | 2019-07-16 09:21 | NUR ---
EMBOSSING MACHINE OPERATOR NOTE PATIENT IN BED, AWAKE WITH CONFUSION WITH BOTH SOFT RESTRAIN IN PLACE, ON 2L NC NO SOB NOTED AT THIS TIME , NG TUBE IN PLACE CHECKED PLACED BY AUSCULTATION BY AIR ,KEEP HEAD ELEVATED AT ALL TIME, , RT FEMORAL HD CATH IN PLACE, BED IN LOWEST AND LOCKED POSITION,STILL CANT EAT CLOSED HIS MOUTH TIGHT ,DIETARY BHAVANI NOTIFIED WILL INFORM MD ,ALL NEEDS ATTENDED
--- NOTE | 2019-07-16 11:19 | NUR ---
DREDGE WORKER NOTE SEEN BY DR NOLASCO NOTIFIED THAT PATIENT STILL CANT EAT WELL NOT OPEN HIS MOUTH OK TO DO AGAIN SWALLOW EVAL WILL F\U
--- NOTE | 2019-07-16 12:00 | NUR ---
BLOOD BANK SUPERVISOR NOTE UNABLE TO SWALLOW WELL WILL AWAITE FOR ST
--- NOTE | 2019-07-16 12:00 | NUR ---
DIRECTOR AUTO NOTE HG 7.[address] NOLASCO OK TO GIVE
--- NOTE | 2019-07-16 14:58 | NUR ---
patient family notified pt tranmsferred to another unit rm [id number].
--- NOTE | 2019-07-16 16:30 | NUR ---
MAGAZINE FILLER NOTE HD STARTED ORDERED
--- NOTE | 2019-07-16 16:44 | NUR ---
LEATHER PIECE INSPECTOR NORE HOLD BP MEDS AT THIS TIME ,ON HD
--- NOTE | 2019-07-16 18:21 | NUR ---
LEONEL SUERO NOTE ON HD AT THIS TIME Addendum: 07/16/19 at 1824 by SCOTTY MATTHEW RN UNABLE TO EAT AT THIS TIME ON HD ,MISAEL Soliman
--- NOTE | 2019-07-16 18:27 | NUR ---
DISH UP PERSON NOTE HD COMPLETED 2L OF FLUIDS OUT BP 131/77 HR 101
--- NOTE | 2019-07-16 19:50 | NUR ---
TIRE SETTER OPENING NOTE, PATIENT IN BED, OPEN EYES SPONTANEOUSLY, NONVERBAL, ON 2L NC BREATHING EVEN AND UNLABORED, NO SOB/ACUTE DISTRESS NOTED AT THIS TIME, NG TUBE IN PLACE CHECKED PLACED BY AUSCULTATION BY AIR , PATIENT NOW IN PUREE DIET, KEEP HEAD ELEVATED AT ALL TIME, FOR ASPIRATION PRECAUTIONS, , RT FEMORAL HD CATH IN PLACE, S/P HD TODAY 2L OUT ACCORDING TO NURSE, BED LOCKED AND LOWEST POSITION, ALL NEEDS ATTENDED, WILL CONTINUE TO MONITOR CLOSELY.
[2019-07-17] VITALS: BP 135/79
[2019-07-17] MEDS: BLOOD SUGAR DIAGNOSTIC 1 EACH STRIP IN SCH ×4 (00:36→17:46)
[2019-07-17] MEDS: INSULIN REGULAR, HUMAN 100 UNIT/ML 3 ML VIAL SQ PRN ×3 (00:37→13:25)
[2019-07-17 04:00] VITALS: BP 125/77
[2019-07-17 04:34] LABS: BASOPHILS # (AUTO) 0.1 /CMM (0.0-0.2); BASOPHILS % (AUTO) 0.8 % (0.0-2.0); EOSINOPHILS % (AUTO) 1.4 % (0.0-6.0); HEMATOCRIT 25 % (39-51); HEMOGLOBIN 8.1 g/dL (13.5-17.5); LYMPHOCYTES # (AUTO) 1.1 /CMM (0.8-4.8); LYMPHOCYTES % (AUTO) 10.7 % (20.0-44.0); MEAN CORPUSCULAR HGB CONC 33 g/dl (31.0-36.0); MEAN CORPUSCULAR VOLUME 85 fL (80-96); MONOCYTES # (AUTO) 0.4 /CMM (0.1-1.30); NEUTROPHILS # (AUTO) 8.5 /CMM (1.8-8.9); NEUTROPHILS % (AUTO) 83.1 % (43.0-81.0); PLATELET COUNT (AUTO) 299 /CMM (150-450); RED BLOOD CELL COUNT(AUTO) 2.95 MIL/uL (4.5-6.0); WHITE BLOOD COUNT (AUTO) 10.2 K/uL (4.3-11.0)
[2019-07-17 04:57] LABS: CREATININE 3.2 mg/dL (0.6-1.3); POTASSIUM 3.1 mmol/L (3.5-5.1)
--- NOTE | 2019-07-17 06:00 | NUR ---
RN NOTE BLOOD GLUCOSE CHECKED AND REVEALED 118, INSULIN NOT GIVEN PER SLIDING SCALE.
--- NOTE | 2019-07-17 06:48 | NUR ---
RN CLOSING NOTE PATIENT IN BED AND APPEARS RESTING COMFORTABLY, REMAINS IN STABLE CONDITION. PATIENT IN NO ACUTE DISTRESS. NO SOB NOTED, PT BREATHING IS EVEN AND UNLABORED. PATIENT IS CLEAN , DRY AND COMFORTABLE THROUGHOUT THE SHIFT. NEEDS AND CONCERNS ADDRESSED. SAFETY MEASURES IMPLEMENTED PER PROTOCOL. PATIENT BED IS LOCKED AND IN LOWEST POSITION. SIDE RAILS UP. CALL LIGHT WITHIN REACH OF THE PATIENT. WILL ENDORSE TO MORNING SHIFT FOR CONTINUATION OF CARE.
--- NOTE | 2019-07-17 07:25 | NUR ---
POWER BARKER OPERATOR NOTES RECEIVED PT IN BED, ASLEEP, APPEARS COMFORTABLE. ON DROPLET ISOLATION FOR COVID. PT ON SUPPLEMENTARY OXYGEN AT 2L VIA NC WITH NO ACUTE RESPIRATORY DISTRESS NOTED. RIGHT NARE NGT PRESENT. PT NOT EXHIBITING ANY PAIN OR DISCOMFORT AT THIS TIME. ON TELEMONITORING NSR WITH BBB, HR 70. LEFT IJ, FLUSHED WITH NS, INTACT AND OPERATIONAL. RIGHT FEMORAL HD CATH ACCESS NOTED. FC IN PLACE. PT KEPT COMFORTABLE. CALL LIGHT KEPT WITHIN REACH. PT'S BED IN LOWEST, LOCKED POSITION WITH SR X3. WILL CONTINUE PLAN OF CARE.
[2019-07-17 08:00] VITALS: BP 134/76
[2019-07-17] MEDS: HEPARIN SODIUM, PORCINE 5000 UNITS/1 ML VIAL SQ SCH ×2 (08:34→20:35)
[2019-07-17] MEDS: POTASSIUM CL. PREMIX PERIPHER. 50 ML IV SCH ×4 (08:34→13:03)
[2019-07-17] MEDS: AMIODARONE HCL 200 MG TABLET PO SCH ×2 (08:35→16:54)
[2019-07-17] MEDS: NYSTATIN (PYXIS) 500,000 UNIT/5 ML ORAL.SUSP PO SCH ×3 (08:35→16:53)
[2019-07-17] MEDS: FAMOTIDINE/PF INJ 20 MG/2 ML VIAL IV SCH ×2 (08:35→20:35)
[2019-07-17] MEDS: PROSOURCE / PROSTAT (PYXIS) 30 ML UDC GT SCH ×3 (09:17→17:45)
[2019-07-17] MEDS: DAKINS QUARTER STRENGTH (0.125%) 480 ML BOTTLE TOP SCH (09:18)
--- NOTE | 2019-07-17 09:50 | NUR ---
RN NOTES ENDORSE TO RN/AUDELIA FOR LEROY.
--- NOTE | 2019-07-17 10:00 | NUR ---
RN OPENING NOTES Received patient resting in bed. VS are stable with a HR of 110, saturating at 98% on 2L NC of O2. the Patient is A/O x1.The patient has no s/s of distress or change in condition at this time. The is on external telemonitor with a HR of 90's, NSR. The patient has been placed on full liquid diet. The pt is on NG on the R-side. The pt has a FC, draining well. The patine has a triple lumen central line, cleaned, patent, and flushing well. Will continue to minor the patient. All safety mechanisms are in place, bed locked and in the lowest position; call light and bedside table within reach.
[2019-07-17 12:00] VITALS: BP 122/71
[2019-07-17 16:00] VITALS: BP 164/104
--- NOTE | 2019-07-17 19:48 | NUR ---
RN CLOSING NOTES: Pt is resting in bed. VS are stable with a HR of 80, saturating at 98% on 2L NC of O2. the Patient is A/O x1.The patient has no s/s of distress or change in condition at this time. The pt is on external telemonitor with a HR of 80's, NSR. The patient has been placed on full liquid diet. The pt is on NG on the R-side. The pt has a FC, draining well. The patine has a triple lumen central line, cleaned, patent, and flushing well. Will endorse the patient to the next shift. All safety mechanisms are in place, bed locked and in the lowest position; call light and bedside table within reach.
--- NOTE | 2019-07-17 19:55 | NUR ---
RN OPENING NOTE RECEIVED PT IN BED AND APPEARS RESTING COMFORTABLY. PATIENT IN NO S/SX OF ACUTE DISTRESS AT THIS TIME. NO SOB NOTED. PATIENT'S BREATHING IS EVEN AND UNLABORED. PATIENT IS ON 2 L OF OXYGEN VIA NC; TOLERATING WELL. PATIENT ON TELE MONITOR READING SR WITH BBB, HR IS @90'S. NOTED IV SITE ON LEFT IJ, PATENT AND FLUSHING WELL, NO S/S OF INFECTION NOTED. TUBBS CATH IN PLACE, DRAINING TO A CLEAR, YELLOW URINE. SAFETY MEASURES IMPLEMENTED PER PROTOCOL. PATIENT BED ALARM IS ON. HEAD OF BED ELEVATED. BED IS LOCKED, IN LOWEST POSITION AND SIDE RAILS UPX2. CALL LIGHT WITHIN REACH OF THE PATIENT. WILL CONTINUE TO MONITOR AND REASSESS FOR ANY CHANGE IN CONDITION.
[2019-07-17 20:00] VITALS: BP 107/66
[2019-07-18] VITALS (7 sets, daily range): BP systolic 111–145; BP diastolic 64–80
[2019-07-18] MEDS: BLOOD SUGAR DIAGNOSTIC 1 EACH STRIP IN SCH ×4 (00:06→17:53)
--- NOTE | 2019-07-18 06:23 | NUR ---
FRUIT GRADER NOTES PATIENT HAS UNEVENTFUL NIGHT NO S/S OF ACUTE DISTRESS NOTED. BREATHING NORMAL REMAINS STABLE THROUGH OUT THE SHIFT. IV SITE INTACT PATENT FLUSHED WELL. VITAL SIGNS REMAINED WNL. BED BATH RENDERED. WOUND CARE DONE PATIENT TOLERATED WELL. ALL NEEDS ARE ATTENDED. SAFETY MEASURES IN PLACE, CALL LIGHT WITHIN REACH. WILL ENDORSE TO AM NURSE FOR LEROY.
[2019-07-18] MEDS: INSULIN REGULAR, HUMAN 100 UNIT/ML 3 ML VIAL SQ PRN ×2 (06:33→17:55)
--- NOTE | 2019-07-18 07:00 | NUR ---
TELE CLOSING NOTE RECEIVED REPORT FROM [facility] SHIFT NURSE. PT AWAKE IN BED, ALERT AND ORIENTED X 1, ON 02 VIA NC 2L/MIN, SATURATING WELL, RESPIRATIONS EVEN AND UNLABORED, NO SIGNS OF RESPIRATORY DISTRESS NOTED. NG TUBE IN RIGHT NARE. TUBBS CATH INTACT, PATENT, DRAINING OREN CLEAR URINE. LEFT JUGULAR MIDLINE INTACT, PATENT. RIGHT FEMORAL HD CATH INTACT, SECURED WITH CLEAN DRESSING. BED IN LOW POSITION, LOCKED, CALL LIGHT WITHIN REACH. Addendum: 07/18/19 at 1833 by BRENDEN MEDEL RN OPENING NOTE
--- NOTE | 2019-07-18 08:15 | NUR ---
PT UNABLE TO TOLERATE PO FLUID/DIET. FAILED NURSING SWALLOW EVAL. SPEECH THERAPIST NOTIFIED AND ORDERED A REPEAT SWALLOW EVAL
[2019-07-18] MEDS: NYSTATIN (PYXIS) 500,000 UNIT/5 ML ORAL.SUSP PO SCH ×3 (08:51→17:00)
[2019-07-18] MEDS: AMIODARONE HCL 200 MG TABLET PO SCH ×2 (08:51→17:01)
[2019-07-18] MEDS: HEPARIN SODIUM, PORCINE 5000 UNITS/1 ML VIAL SQ SCH ×2 (08:52→20:33)
[2019-07-18] MEDS: FAMOTIDINE/PF INJ 20 MG/2 ML VIAL IV SCH ×2 (08:52→20:29)
[2019-07-18] MEDS: DAKINS QUARTER STRENGTH (0.125%) 480 ML BOTTLE TOP SCH (09:00)
[2019-07-18] MEDS: PROSOURCE / PROSTAT (PYXIS) 30 ML UDC GT SCH ×3 (09:00→17:00)
--- NOTE | 2019-07-18 16:56 | NUR ---
NIMO NOTES NIACTIN NOT GIVEN BECAUSE PT IS UNABLE TO HOLD FLUIDS AND FOLLOW COMMAND, RISK FOR ASPIRATION Addendum: 07/18/19 at 1659 by BRENDEN MEDEL RN NIMO NOTES NYSTATIN NOT GIVEN BECAUSE PT IS UNABLE TO HOLD FLUIDS AND FOLLOW COMMAND, RISK FOR ASPIRATION
--- NOTE | 2019-07-18 18:33 | NUR ---
TELE CLOSING NOTE PT AWAKE IN BED, ALERT AND ORIENTED X 1, ON 02 VIA NC 2L/MIN, SATURATING WELL, RESPIRATIONS EVEN AND UNLABORED, NO SIGNS OF RESPIRATORY DISTRESS NOTED. NG TUBE IN RIGHT NARE. TUBBS CATH INTACT, PATENT, DRAINING OREN CLEAR URINE. LEFT JUGULAR MIDLINE INTACT, PATENT. RIGHT FEMORAL HD CATH INTACT. SINUS RHYTHM ON TELE MONITOR. PROVIDED SAFETY AND COMFORT TO PT THROUGHOUT SHIFT, ALL DUE MEDS GIVEN. WOUND CARE PROVIDED. TURNED AND REPOSITIONED EVERY 2 HOURS. BED IN LOW POSITION, LOCKED, CALL LIGHT WITHIN REACH. WILL ENDORSE TO [facility] SHIFT NURSE. Addendum: 07/18/19 at 1835 by BRENDEN MEDEL RN BILATERAL SOFT WRIST RESTRAINTS INTACT, NO REDNESS, NO BRUISING NOTED. BILATERAL PULSES PRESENT, SKIN INTEGRITY CHECKED EVER 2 HOURS THROUGHOUT SHIFT.
--- NOTE | 2019-07-18 19:30 | NUR ---
RN OPENING NOTE RECEIVED PT IN BED AND APPEARS RESTING COMFORTABLY. PATIENT IN NO S/SX OF ACUTE DISTRESS AT THIS TIME. NO SOB NOTED. PATIENT'S BREATHING IS EVEN AND UNLABORED. PATIENT IS ON 2 L OF OXYGEN VIA NC; TOLERATING WELL. PATIENT ON TELE MONITOR READING SR, HR IS @60'S. NOTED IV SITE ON MIDLINE LEFT JV, PATENT AND FLUSHING WELL, NO S/S OF INFECTION NOTED. TUBBS CATH IN PLACE, DRAINING TO A CLEAR, YELLOW URINE.BILATERAL SOFT WRIST RESTRAINTS IN PLACE, ASSESSED PER PROTOCOL. SAFETY MEASURES HAVE BEEN PROVIDED AND IMPLEMENTED. PATIENT BED ALARM IS ON. HEAD OF BED ELEVATED. BED IS LOCKED, IN LOWEST POSITION AND SIDE RAILS UP. CALL LIGHT WITHIN REACH OF THE PATIENT. ISOLATION PRECAUTIONS IN PLACE. WILL CONTINUE TO MONITOR AND REASSESS FOR ANY CHANGES.
[2019-07-19] VITALS: BP 117/71
[2019-07-19] MEDS: BLOOD SUGAR DIAGNOSTIC 1 EACH STRIP IN SCH ×4 (00:49→18:09)
[2019-07-19] MEDS: INSULIN REGULAR, HUMAN 100 UNIT/ML 3 ML VIAL SQ PRN ×4 (00:50→22:50)
[2019-07-19 04:00] VITALS: BP 119/69
[2019-07-19 06:23] LABS: BASOPHILS # (AUTO) 0.1 /CMM (0.0-0.2); EOSINOPHILS % (AUTO) 1.7 % (0.0-6.0); HEMATOCRIT 26 % (39-51); LYMPHOCYTES # (AUTO) 1.2 /CMM (0.8-4.8); LYMPHOCYTES % (AUTO) 13.9 % (20.0-44.0); MEAN CORPUSCULAR HGB CONC 31 g/dl (31.0-36.0); MEAN CORPUSCULAR VOLUME 86 fL (80-96); MONOCYTES # (AUTO) 0.4 /CMM (0.1-1.30); MONOCYTES % (AUTO) 5.1 % (2.0-12.0); NEUTROPHILS # (AUTO) 6.8 /CMM (1.8-8.9); NEUTROPHILS % (AUTO) 78.3 % (43.0-81.0); PLATELET COUNT (AUTO) 246 /CMM (150-450); RED BLOOD CELL COUNT(AUTO) 2.98 MIL/uL (4.5-6.0); WHITE BLOOD COUNT (AUTO) 8.7 K/uL (4.3-11.0)
--- NOTE | 2019-07-19 06:34 | NUR ---
RN CLOSING NOTE: PATIENT REMAINS IN ROOM. NO SIGNS OF RESPIRATORY. SAFETY PRECAUTIONS IN PLACE WITH BED IN LOWEST POSITION, CALL LIGHT WITHIN REACH, BREAKS ON, SIDE RAILS UP. ALL NEEDS ATTENDED TO, PATIENT KEPT CLEAN AND DRY. WILL ENDORSE TO ONCOMING SHIFT ABOUT LEROY.
[2019-07-19 07:02] LABS: ALBUMIN 2.2 g/dL (3.4-5.0); BILIRUBIN,TOTAL 0.5 mg/dL (0.2-1.0); CALCIUM, SERUM 8.9 mg/dL (8.5-10.1); CREATININE 3.4 mg/dL (0.6-1.3); POTASSIUM 3.3 mmol/L (3.5-5.1); TOTAL PROTEIN, SERUM 7.6 g/dL (6.4-8.2)
[2019-07-19 08:00] VITALS: BP 126/70
--- NOTE | 2019-07-19 08:00 | NUR ---
DALIA RN OPENING NOTES RECEIVED PT IN BED COMFORTABLE.ALERT AND ORIENTED X0-1.GT PT IS ON N/C 2L. FULL LIQUID.LEFT MID LEFT JUGULAR LINE IS WELL FLUSHED AND INTACT. BED IN LOWEST POSITION. CALL LIGHT WITHIN REACH. SAFETY MEASUREMENTS ARE IMPLEMENTED. RAILS UP X2. WILL CONTINUE TO MONITOR.
[2019-07-19] MEDS: NYSTATIN (PYXIS) 500,000 UNIT/5 ML ORAL.SUSP PO SCH ×3 (08:39→17:18)
[2019-07-19] MEDS: HEPARIN SODIUM, PORCINE 5000 UNITS/1 ML VIAL SQ SCH (08:40)
[2019-07-19] MEDS: AMIODARONE HCL 200 MG TABLET PO SCH (08:42)
[2019-07-19] MEDS: FAMOTIDINE/PF INJ 20 MG/2 ML VIAL IV SCH ×2 (08:42→21:57)
[2019-07-19] MEDS: PROSOURCE / PROSTAT (PYXIS) 30 ML UDC GT SCH ×3 (08:44→16:55)
[2019-07-19] MEDS: DAKINS QUARTER STRENGTH (0.125%) 480 ML BOTTLE TOP SCH (10:59)
[2019-07-19 12:00] VITALS: BP 128/74
[2019-07-19 16:00] VITALS: BP 131/71
--- NOTE | 2019-07-19 18:46 | NUR ---
DALIA RN CLOSING NOTES PT IN BED COMFORTABLE.ALERT AND ORIENTED X0.GT PT IS ON N/C 2 L. V FIB H 96. NG TUBE FEEDING.LEFT MIDLINE JUGULAR IS WELL FLUSHED AND INTACT. BED IN LOWEST POSITION. CALL LIGHT WITHIN REACH. SAFETY MEASUREMENTS ARE IMPLEMENTED. RAILS UP X2. WILL ENDORSED TO NIGHTSHIFT FOR LEROY
[2019-07-19 20:00] VITALS: BP_SYST 114; BP_SYST 116; BP_DIAS 53; BP_DIAS 68
[2019-07-20] VITALS (8 sets, daily range): BP systolic 109–154; BP diastolic 68–82
[2019-07-20] MEDS: INSULIN REGULAR, HUMAN 100 UNIT/ML 3 ML VIAL SQ PRN ×3 (00:22→23:19)
[2019-07-20] MEDS: BLOOD SUGAR DIAGNOSTIC 1 EACH STRIP IN SCH ×5 (00:23→23:19)
[2019-07-20] MEDS: MORPHINE SULFATE INJ 2 MG/ML DISP.SYRIN IV PRN (00:26)
--- NOTE | 2019-07-20 05:01 | NUR ---
RN notes In bed comfortably resting with no distress noted. On O2 at 2lpm via nasal cannula, tolerating well, breathing even and unlabored. Alert with confusion, eyes opens with eye tracking, non verbal. During wound care. noted with facial grimacing, Morphine 2mg administered with relief. Vital signs wnl. On bilateral wrist restraints, release every two hours for comfort, repositioning and hygiene. No significant change of condition. Kept clean and dry. Will endorse to next shift for co
[2019-07-20] MEDS: FAMOTIDINE/PF INJ 20 MG/2 ML VIAL IV SCH ×2 (09:09→21:05)
[2019-07-20] MEDS: PROSOURCE / PROSTAT (PYXIS) 30 ML UDC GT SCH ×3 (09:10→18:14)
[2019-07-20] MEDS: AMIODARONE HCL 200 MG TABLET PO SCH (09:12)
[2019-07-20] MEDS: DAKINS QUARTER STRENGTH (0.125%) 480 ML BOTTLE TOP SCH (09:13)
--- NOTE | 2019-07-20 10:31 | NUR ---
wound care done on coccyx and back.
--- NOTE | 2019-07-20 10:31 | NUR ---
PATIENT NG AND TUBBS DISCONTINUE PER MD ORDER. PATIENT ATE 100 % OF PUREED BREAKFAST.ASPIRATION PRECAUTION OBSERVED.NO ACUTE DISTRESS.WOUND CARE DONE ORDERED.
--- NOTE | 2019-07-20 11:41 | NUR ---
PATIENT BS 141 TOLERATING HD.
--- NOTE | 2019-07-20 13:50 | NUR ---
no fluids removed per hd nurse.
--- NOTE | 2019-07-20 14:17 | NUR ---
reswab for covid send to lab.
--- NOTE | 2019-07-20 14:46 | NUR ---
transferred care to eulalia castaneda for continuity of care.
--- NOTE | 2019-07-20 14:55 | NUR ---
Received patient from Rosanna SUERO. patient resting quietly in bed, not in acute distress. Oxygen at 2 L, sats 98%. Safety measures intact. Will cont to monitor
--- NOTE | 2019-07-20 18:32 | NUR ---
RN CLOSING NOTES PATIENT REMAINS STABLE AT THIS TIME NO SIGNIFICANT CHANGE ON PATIENT CONDITION, NO PAIN , NO SOB , NO ACUTE RESPIRATORY DISTRESS BED LOCKED LOWEST POSITION CALL LIGHT WITH IN REACH ALL SAFETY MEASURE IMPLEMENTED PER HOSPITAL POLICY WOUND DRESSING CHANGED PER HOSPITAL POLICY.
--- NOTE | 2019-07-20 19:30 | NUR ---
MS RN RECEIVE PT IN BED A/O X1, PERIODS OF CONFUSION. PT ON BILATERAL WRIST RESTRAINT. NOT IN DISTRESS, STABLE. SAFETY MEASURES AT ALL TIMES. WILL CONT TO MONITOR.
[2019-07-21 04:00] VITALS: BP 134/74
[2019-07-21] MEDS: INSULIN REGULAR, HUMAN 100 UNIT/ML 3 ML VIAL SQ PRN ×2 (05:21→12:29)
[2019-07-21] MEDS: BLOOD SUGAR DIAGNOSTIC 1 EACH STRIP IN SCH ×3 (05:21→17:46)
--- NOTE | 2019-07-21 06:01 | NUR ---
RN CLOSING PT ASLEEP OPES EYES TO VERBAL STIMULI, 2LPM VIA NC O2 SAT 98%. AM CARE RENDERED, NEEDS ATTENDED AND ANTICIPATED, KEPT CLEAN, DRY AND COMFORTABLE. REPOSITION EVERY 2 HOURS. STABLE. NO S/S OF DISTRESS, SAFETY MEASURES AT ALL TIMES. WILL ENDORSE NEXT SHIFT POC
--- NOTE | 2019-07-21 07:25 | NUR ---
MS RN OPENING NOTE Received patient asleep in bed appears calm and relaxed. No signs of distress on NC @ 2L tolerating well. Patient is AO x1 non verbal. Has L Int Jugular triple lumen cath flushed well and dressing intact and R femoral fistula. Bilateral soft restraints in place on both wrist checked for circulation and skin integrity. Safety measures reinforced. Bed locked and on lowest position. Call light within reach. Siderails up x2. Will cont to monitor
[2019-07-21 08:00] VITALS: BP_SYST 125; BP_SYST 127; BP_DIAS 75
[2019-07-21] MEDS: FAMOTIDINE/PF INJ 20 MG/2 ML VIAL IV SCH ×2 (08:24→21:22)
[2019-07-21] MEDS: AMIODARONE HCL 200 MG TABLET PO SCH (08:25)
[2019-07-21] MEDS: PROSOURCE / PROSTAT (PYXIS) 30 ML UDC GT SCH ×3 (08:26→17:00)
[2019-07-21] MEDS: DAKINS QUARTER STRENGTH (0.125%) 480 ML BOTTLE TOP SCH (08:26)
[2019-07-21 12:00] VITALS: BP 131/74
[2019-07-21 16:00] VITALS: BP 131/87
--- NOTE | 2019-07-21 17:33 | NUR ---
RN NURSE PATIENT TRANSFERRED FROM DALIA REPORT GET FROM ROQUE SUERO. PATIENT ON O2 2L NC, AWAKE, CONFUSED. HAS NO ACUTE RESPIRATORY DISTRESS, ,V/S TAKEN BP-131/87, P-101, R-19, T-98.7, 02-100 NC. BS-146 MG/DL HELD COVERAGE PER MD ORDER IF BELOW 200. PATIENT TOLERATED DINNER 100 % WITH ASSIST OF HAM BONER, FEEDER, KEEP HOB ELEVATED FOR ASPIRATION PRECAUTION. PROSURE NOT ADMINISTERED BECAUSE NOT AVAILABLE. PERMCATH ON RIGHT FEMORAL INTACT, IV ACCESS ON RIGHT EJ INTACT. PATIENT HAS MULTIPLE WOUNDS, TOTAL CARE. ASSIST TURN AND REPOSTION Q 2 HR. CONTINUED MONITORING.
--- NOTE | 2019-07-21 17:33 | NUR ---
INVENTORY CONTROL SPECIALIST NOTE Patient was transferred to room 201 in stable condition. Hooked to oxygen NC 2L. Gave report to Bobby SUERO.
[2019-07-21 18:06] VITALS: BP 131/87
--- NOTE | 2019-07-21 18:20 | NUR ---
RN NOTES PATIENT ON SEMI FOWLERS POSITION IN THE BED, UNABLE TO ANSWER QUESTIONS, CALL LIGHT WITHIN TO REACH. ENDORSED ONCOMING NURSE FOLLOW PLAN OF CARE.
--- NOTE | 2019-07-21 18:50 | NUR ---
NIMO WONG UC SPECIMEN COLLECTED FROM TUBBS CATHETER PORT. LAB AWARE OF WAREHOUSE EXAMINER. Addendum: 07/21/19 at 1859 by MIGUELITO SMART RN ABOVE NOTES [id number] WRONG EATERY.
--- NOTE | 2019-07-21 19:27 | NUR ---
MS RN OPENING NOTES PATIENT RECEIVED RESTING IN BED A/O X 1, CONFUSED. ON 2L OF O2 WITH BREATHING EVEN AND UNLABORED, NO SOB NOTED. NO SIGNS OF ACUTE DISTRESS. NO COMPLAINTS OF PAIN OR DISCOMFORT- NO FACIAL GRIMACING NOTED. BILATERAL SOFT WRIST RESTRAINTS IN PLACE WITH SKIN IN TACT, NO REDNESS, PULSE PRESENT. RFEMORAL FISTULA AND LEFT IJ IV NOTED AND IN PLACE. SAFETY PRECAUTIONS IN PLACE WITH BED IN LOWEST POSITION, CALL LIGHT WITHIN REACH, BREAKS ON, SIDE RAILS UP. WILL CONTINUE TO MONITOR THROUGHOUT THE NIGHT.
[2019-07-21 20:00] VITALS: BP 125/75
[2019-07-22] MEDS: BLOOD SUGAR DIAGNOSTIC 1 EACH STRIP IN SCH ×4 (00:11→17:22)
[2019-07-22 06:21] LABS: BASOPHILS # (AUTO) 0.1 /CMM (0.0-0.2); BASOPHILS % (AUTO) 0.5 % (0.0-2.0); EOSINOPHILS % (AUTO) 1.5 % (0.0-6.0); HEMATOCRIT 23 % (39-51); HEMOGLOBIN 7.4 g/dL (13.5-17.5); LYMPHOCYTES # (AUTO) 0.9 /CMM (0.8-4.8); LYMPHOCYTES % (AUTO) 8.7 % (20.0-44.0); MEAN CORPUSCULAR HGB CONC 32 g/dl (31.0-36.0); MEAN CORPUSCULAR VOLUME 85 fL (80-96); MONOCYTES # (AUTO) 0.4 /CMM (0.1-1.30); MONOCYTES % (AUTO) 4.2 % (2.0-12.0); NEUTROPHILS # (AUTO) 8.9 /CMM (1.8-8.9); NEUTROPHILS % (AUTO) 85.1 % (43.0-81.0); PLATELET COUNT (AUTO) 246 /CMM (150-450); RED BLOOD CELL COUNT(AUTO) 2.72 MIL/uL (4.5-6.0); WHITE BLOOD COUNT (AUTO) 10.5 K/uL (4.3-11.0)
[2019-07-22 06:33] LABS: ALBUMIN 2.1 g/dL (3.4-5.0); BILIRUBIN,TOTAL 0.4 mg/dL (0.2-1.0); CALCIUM, SERUM 8.8 mg/dL (8.5-10.1); CREATININE 3.2 mg/dL (0.6-1.3); MAGNESIUM 1.9 mg/dL (1.8-2.4); POTASSIUM 3.3 mmol/L (3.5-5.1); TOTAL PROTEIN, SERUM 7.5 g/dL (6.4-8.2)
--- NOTE | 2019-07-22 07:17 | NUR ---
MS RN CLOSING NOTES PATIENT RESTING IN BED A/O X 1, CONFUSED. ON 1L OF O2 WITH BREATHING EVEN AND UNLABORED, NO SOB NOTED. NO SIGNS OF ACUTE DISTRESS. NO COMPLAINTS OF PAIN OR DISCOMFORT- NO FACIAL GRIMACING NOTED. RFEMORAL FISTULA AND LEFT IJ IV NOTED AND IN PLACE. SAFETY PRECAUTIONS IN PLACE WITH BED IN LOWEST POSITION, CALL LIGHT WITHIN REACH, BREAKS ON, SIDE RAILS UP. PATIENT KEPT CLEAN AND DRY THROUGHOUT THE NIGHT, ALL NEEDS ATTENDED TO. WILL ENDORSE TO ONCOMING SHIFT ABOUT LEROY.
--- NOTE | 2019-07-22 07:40 | NUR ---
MS RN NOTES RECEIVED PATIENT RESTING IN BED. A/O X 1, CONFUSED. ON 1L OF O2 WITH BREATHING EVEN AND UNLABORED, NO SOB NOTED. NO SIGNS OF ACUTE DISTRESS NOTED AT THIS TIME. RIGHT FEMORAL FISTULA AND LEFT IJ IV NOTED AND IN PLACE. SAFETY PRECAUTIONS IN PLACE WITH BED IN LOWEST POSITION, CALL LIGHT WITHIN REACH, BREAKS ON, SIDE RAILS UPX3. WILL CONTINUE TO MONITOR.
[2019-07-22 08:00] VITALS: BP 161/93
[2019-07-22] MEDS: PROSOURCE / PROSTAT (PYXIS) 30 ML UDC GT SCH ×3 (08:56→17:42)
[2019-07-22] MEDS: FAMOTIDINE/PF INJ 20 MG/2 ML VIAL IV SCH ×2 (08:57→21:03)
[2019-07-22] MEDS: AMIODARONE HCL 200 MG TABLET PO SCH (08:58)
[2019-07-22] MEDS: DAKINS QUARTER STRENGTH (0.125%) 480 ML BOTTLE TOP SCH (09:06)
--- NOTE | 2019-07-22 14:00 | NUR ---
RN NOTES DILAYSIS NURSE ON UNIT, WILL DIALYZE THE PATIENT BEDSIDE, V/S WNL, NO SIGNS OF DISTRESS NOTED AT THIS TIME. WILL CONTINUE TO MONITOR.
--- NOTE | 2019-07-22 15:01 | NUR ---
RN NOTES DIALYSIS DONE, NO SIGNS OF DISTRESS NOTED, V/S WNL. WILL CONTINUE TO MONITOR.
[2019-07-22 16:00] VITALS: BP 142/81
--- NOTE | 2019-07-22 18:42 | NUR ---
MS RN NOTES PATIENT RESTING IN BED. A/O X 1, CONFUSED. ON 1L OF O2 WITH BREATHING EVEN AND UNLABORED, NO SOB NOTED. NO SIGNS OF ACUTE DISTRESS NOTED THROUGHOUT THE SHIFT. S/P DIALYSIS, TOLERATED WELL. RIGHT FEMORAL FISTULA AND LEFT IJ IV NOTED AND IN PLACE. SAFETY PRECAUTIONS IN PLACE WITH BED IN LOWEST POSITION, CALL LIGHT WITHIN REACH, BREAKS ON, SIDE RAILS UPX3. WILL ENDORSE TO STORE MERCHANDISER NURSE FOR LEROY.
--- NOTE | 2019-07-22 19:28 | NUR ---
MS RN OPENING NOTES PATIENT RECEIVED RESTING IN BED A/O X 1, NON VERBAL. ON 1L OF O2 WITH BREATHING EVEN AND UNLABORED, NO SOB NOTED. NO SIGNS OF ACUTE DISTRESS. NO COMPLAINTS OF PAIN OR DISCOMFORT- NO FACIAL GRIMACING NOTED. RIGHT FEMORAL HD CATH AND R IJ NOTED AND IN PLACE. SAFETY PRECAUTIONS IN PLACE WITH BED IN LOWEST POSITION, CALL LIGHT WITHIN REACH, BREAKS ON, SIDE RAILS UP. WILL KEEP PATIENT NPO AFTER MIDNIGHT. WILL CONTINUE TO MONITOR THROUGHOUT THE SHIFT.
[2019-07-22 20:00] VITALS: BP 135/71
[2019-07-23] MEDS: BLOOD SUGAR DIAGNOSTIC 1 EACH STRIP IN SCH ×5 (00:16→23:25)
[2019-07-23 06:25] LABS: BASOPHILS % (AUTO) 0.6 % (0.0-2.0); EOSINOPHILS % (AUTO) 3.1 % (0.0-6.0); HEMATOCRIT 22 % (39-51); HEMOGLOBIN 7.2 g/dL (13.5-17.5); LYMPHOCYTES % (AUTO) 13.4 % (20.0-44.0); MEAN CORPUSCULAR HGB CONC 33 g/dl (31.0-36.0); MEAN CORPUSCULAR VOLUME 85 fL (80-96); MONOCYTES # (AUTO) 0.4 /CMM (0.1-1.30); MONOCYTES % (AUTO) 5.8 % (2.0-12.0); NEUTROPHILS # (AUTO) 5.5 /CMM (1.8-8.9); NEUTROPHILS % (AUTO) 77.1 % (43.0-81.0); PLATELET COUNT (AUTO) 242 /CMM (150-450); RED BLOOD CELL COUNT(AUTO) 2.61 MIL/uL (4.5-6.0); WHITE BLOOD COUNT (AUTO) 7.1 K/uL (4.3-11.0)
--- NOTE | 2019-07-23 06:48 | NUR ---
MS RN CLOSING NOTES PATIENT RESTING IN BED A/O X 1. STABLE ON RA WITH BREATHING EVEN AND UNLABORED, NO SOB NOTED. NO SIGNS OF ACUTE DISTRESS. NO COMPLAINTS OF PAIN OR DISCOMFORT- NO FACIAL GRIMACING NOTED. RIGHT FEMORAL HD CATH AND R IJ NOTED AND IN PLACE. KEPT NPO THROUGHOUT THE NIGHT. SAFETY PRECAUTIONS IN PLACE WITH BED IN LOWEST POSITION, CALL LIGHT WITHIN REACH, BREAKS ON, SIDE RAILS UP. PATIENT KEPT CLEAN AND DRY. ALL NEEDS ATTENDED TO. WILL ENDORSE TO ONCOMING SHIFT ABOUT LEROY.
[2019-07-23 06:56] LABS: FERRITIN 445 ng/mL (8-388)
[2019-07-23 07:12] LABS: IRON, SERUM 20 ug/dl (50-175); TOTAL IRON BINDING CAPACITY 162 ug/dl (250-450)
--- NOTE | 2019-07-23 07:42 | NUR ---
MS RN NOTES RECEIVED PATIENT RESTING IN BED. A/O X 1, CONFUSED. ON 1L OF O2 WITH BREATHING EVEN AND UNLABORED, NO SOB NOTED. NO SIGNS OF ACUTE DISTRESS NOTED AT THIS TIME. RIGHT FEMORAL FISTULA AND LEFT IJ IV NOTED AND IN PLACE. NPO SINCE MIDNIGHT, SCHEDULE FOR PERMA CATH PLACEMENT AT 12:00 NOON. SAFETY PRECAUTIONS IN PLACE WITH BED IN LOWEST POSITION, CALL LIGHT WITHIN REACH, BREAKS ON, SIDE RAILS UPX3. WILL CONTINUE TO MONITOR.
[2019-07-23 08:00] VITALS: BP 130/74
[2019-07-23] MEDS: PROSOURCE / PROSTAT (PYXIS) 30 ML UDC GT SCH ×3 (08:02→17:13)
[2019-07-23] MEDS: FAMOTIDINE/PF INJ 20 MG/2 ML VIAL IV SCH ×2 (08:19→21:33)
[2019-07-23] MEDS: DAKINS QUARTER STRENGTH (0.125%) 480 ML BOTTLE TOP SCH (08:21)
[2019-07-23] MEDS ORDERED: LIDOCAINE HCL/MPF 1% 30 ML VIAL IJ ONE (08:54)
[2019-07-23] MEDS ORDERED: ANESTHESIA TRAY IN PYXIS 1 EA TRAY MC ONE (08:54)
[2019-07-23] MEDS ORDERED: HEPARIN SODIUM, PORCINE 1,000 UNIT/ML VIAL ONE (08:54)
[2019-07-23] MEDS: AMIODARONE HCL 200 MG TABLET PO SCH (09:00)
--- NOTE | 2019-07-23 11:30 | NUR ---
RN NOTES picked up by o.r staff for perma cath placement, consent and checklist done, no signs of distress noted, v/s wnl.
--- NOTE | 2019-07-23 13:28 | NUR ---
RN NOTES PATIENT CAMEBACK FROM SURGERY, V/S WNL, NO SIGNS OF DISTRESS NOTED AT THIS TIME, NOTED WITH PERMACATH ON RIGHT CHEST WALL WITH DRESSING, ACCESS FOR HD, WILL CONTINUE TO MONITOR.
--- NOTE | 2019-07-23 14:00 | NUR ---
RN NOTES CALLED DR. GARCIA REGARDING PATIENT, [facility]HT[facility](DIALYSIS NURSE) WILL NOT SEE THE PATIENT TODAY SO NOT BE ABLE TO REMOVED THE RIGHT FEMORAL HD CATH, PER DR. GARCIA HE IS NOT AVAILABLE TODAY AND CAN REMOVED THE RIGHT FEMORAL HD CATH IN AM.
--- NOTE | 2019-07-23 14:20 | NUR ---
RN NOTES CALLED AND SPOKE TO DR. IBANEZ REGARDING PATIENT STATUS, THAT PATIENT MIGHT BE DISCHARGED IN AM, PER DR. IBANEZ TO CALL [facility] TO FIND SOMEONE WHO IS AVAILABLE AND QUALIFIED TO REMOVED THE CATHETER.
[2019-07-23] MEDS: SOD FERRIC GLUC 125 MG in IV NS 0.9% 100 ML IV SCH (14:50)
[2019-07-23 16:00] VITALS: BP 152/86
--- NOTE | 2019-07-23 16:00 | NUR ---
RN NOTES CALLED AND SPOKE TO DR. LIN AND INFORMED HIM REGARDING PATIENT BUT PER HE IS NOT IN THE HOSPITAL BUT WILL TRY TO CALL AND FIND SOMEONE WHO CAN REMOVE THE FEMORAL HD CATHETER.
--- NOTE | 2019-07-23 16:43 | NUR ---
RN NOTES CALLED AND SPOKE TO NURSING PREFABRICATED HOUSES TRIMMER AND MADE AWARE OF THE SITUATION, SHE SAID TO CALL AND ASK IF DR. LORENZA FLORES IS AVAILABLE PER [facility].
--- NOTE | 2019-07-23 17:08 | NUR ---
RN NOTES SPOKE TO DR. LORENZA FLORES AND HE IS NOT AVAILABLE FOR 1 WEEK.
--- NOTE | 2019-07-23 18:00 | NUR ---
RN NOTES PER NURSING OIL TREATER NIMO GAY. IS AVAILABLE AROUND 22:00-23:00 TO REMOVED THE RIGHT FEMORAL HD CATHETER AND PER OIL TREATER TO CALL CM TO ADJUST THE APPOINTMENT SCHEDULER TIME TO 23:00. CALLED AND INFORMED CM BUT THE SNF IS NOT ACCEPTING ADMISSION AT THAT TIME AND WILL JUST DISCHARGE THE PATIENT FIRST THING IN AM.
--- NOTE | 2019-07-23 18:59 | NUR ---
MS RN NOTES PATIENT RESTING IN BED. A/O X 1, CONFUSED. ON 1L OF O2 WITH BREATHING EVEN AND UNLABORED, NO SOB NOTED. NO SIGNS OF ACUTE DISTRESS NOTED THROUGHOUT THE SHIFT, S/P PERMACATH INSERTION ON RIGHT CHEST WALL. RIGHT FEMORAL FISTULA AND LEFT IJ IV NOTED AND IN PLACE. SAFETY PRECAUTIONS IN PLACE WITH BED IN LOWEST POSITION, CALL LIGHT WITHIN REACH, BREAKS ON, SIDE RAILS UPX3. WILL ENDORSE TO REINSURANCE CLAIMS ANALYST NURSE FOR LERO[facility].
--- NOTE | 2019-07-23 19:30 | NUR ---
MS RN NOTE: PATIENT RESTING IN BED, NO ACUTE DISTRESS NOTED. BREATHING EVEN AND UNLABORED, NO SOB NOTED. IV TO RIGHT IJ IN PLACE. PERM-A-CATH TO W HD SITE IN PLACE, NO BLEEDING NOTED. BED LOCKED AND IN LOWEST POSITION, CALL LIGHT IN REACH. WILL CONTINUE TO MONITOR.
[2019-07-23 20:30] VITALS: BP 147/77
--- NOTE | 2019-07-23 21:30 | NUR ---
MS RN NOTE: TAYLER GAY NURSE HERE TO REMOVE HD SITE TO RIGHT FEMORAL. COVERED WITH GAUZE, PRESSURE APPLIED AND SECURED WITH TAPE. WILL CONTINUE TO MONITOR FOR BLEEDING.
--- NOTE | 2019-07-23 23:45 | NUR ---
MS RN NOTE: PATIENT BLOOD SUGAR LEVEL 108MG/DL, NO INSULIN NEEDED PER SLIDING SCALE. NO S/S OF HYPO/HYPERGLYCEMIA NOTED. WILL CONTINUE TO MONITOR.
--- NOTE | 2019-07-24 06:35 | NUR ---
MS RN NOTE: PATIENT RESTING IN BED, NO ACUTE DISTRESS NOTED. BREATHING EVEN AND UNLABORED, NO SOB NOTED. IV TO RIGHT IJ IN PLACE. PERM-A-CATH TO RCW HD SITE IN PLACE, NO BLEEDING NOTED. PATIENT BLOOD SUGAR LEVEL 114MG/DL, NO INSULIN NEEDED PER SLIDING SCALE. NO S/S OF HYPER/HYPOGLYCEMIA NOTED. BED LOCKED AND IN LOWEST POSITION, CALL LIGHT IN REACH. WILL ENDORSE TO DAY NURSE TO CONTINUE WITH PLAN OF CARE.
[2019-07-24] MEDS: BLOOD SUGAR DIAGNOSTIC 1 EACH STRIP IN SCH ×3 (06:42→18:07)
[2019-07-24 08:00] VITALS: BP 139/73
--- NOTE | 2019-07-24 08:00 | NUR ---
RN NOTES RECEIVED PATIENT IN THE BED A/O X1, NO ACUTE RESPIRATORY DISTRESS, ROOM AIR, ON SEMI FOWLERS POSITION. PATIENT REDIRECTABLE, ASSIST EATING VIA CHART PICKER TOLERATED BREAKFAST WELL. ADMINISTERED SCHEDULED MEDICATION, V/S STABLE, REFUSED PAIN. PERMCATH INTACT ON RIGHT UPPER CHEST, IV ACCESS ON LEFT EJ TRIPLE LUMEN INTACT. ASSIST TURN AND REPOSITION Q 2 HR. DRESSING CHANGED, KEEP BLE ELEVATED USING PILLOWS, CALL LIGHT WITHIN TO REACH. CONTINUED MONITORING.
[2019-07-24 08:33] VITALS: BP 139/73
[2019-07-24] MEDS: FAMOTIDINE/PF INJ 20 MG/2 ML VIAL IV SCH (08:33)
[2019-07-24] MEDS: AMIODARONE HCL 200 MG TABLET PO SCH (08:33)
[2019-07-24] MEDS: DAKINS QUARTER STRENGTH (0.125%) 480 ML BOTTLE TOP SCH (08:34)
[2019-07-24] MEDS: PROSOURCE / PROSTAT (PYXIS) 30 ML UDC GT SCH ×3 (08:34→18:07)
--- NOTE | 2019-07-24 11:37 | NUR ---
RN NOTES BS-168 MG/DL NO COVERAGE GIVEN BECAUSE MD ORDER IF BS LOWER THAN 200 NO COVERAGE. ALSO PATIENT GETTING HEMODIALYSIS AT THIS TIME.
--- NOTE | 2019-07-24 13:00 | NUR ---
rn notes dialysis ended at this time no output just cleaning per Hd RN, new HD line.
[2019-07-24] MEDS: SOD FERRIC GLUC 125 MG in IV NS 0.9% 100 ML IV SCH (14:04)
[2019-07-24] MEDS: MORPHINE SULFATE INJ 2 MG/ML DISP.SYRIN IV PRN (14:56)
--- NOTE | 2019-07-24 17:55 | NUR ---
THIMBLE PRESS OPERATOR NOTES PATIENT DISCHARGE AT THIS TIME GOING SNF. PATIENT A/O X1, STABLE NO ACUTE RESPIRATORY DISTRESS, V/S WNL, REFUSED PAIN AT THIS TIME. MED RECONCILIATION AND DISCHARGE ORDER REVIEWED AND EXPLAINED TO THE PATIENT. REPORT GIVEN SNF RN . RN VERBALIZED UNDERSTANDING. PATIENT HAS NO BELONGING. PERMCATH INTACT ON RIGHT UPPER CHEST. PATIENT WILL FOLLOW SNF [facility]. PATIENT FAMILY AWARE OF DISCHARGE PLANING. PATIENT BAND SPLITTER BY AMBULANCE.
[2019-07-25] MEDS ORDERED: AMIODARONE HCL 200 MG TABLET PO SCH (09:00)
== END 2019-07-24 18:10 | DRG 720 ==
LOC: ER 15:06 → ICU 17:54 → TELE-TD 07-11 14:10 → TELE1 07-13 19:29 → ICU 07-16 14:04 → TELE-TD 07-17 22:09 → TELE1 07-17 22:28 → MEDSG1 07-20 11:28 → MEDSG2 07-21 17:32
PROVIDERS: ADMIT Hospitalist; ATTEND Internal Medicine
PROC: 5A1955Z Respiratory Ventilation, Greater than 96 Consecutive Hours (ICD-10-PCS; principal; 2019-07-03)
PROC: B548ZZA Ultrasonography of Superior Vena Cava, Guidance (ICD-10-PCS; principal; 2019-07-03)
PROC: 02HV33Z Insertion of Infusion Device into Superior Vena Cava, Percutaneous Approach (ICD-10-PCS; principal; 2019-07-03)
PROC: 0BH17EZ Insertion of Endotracheal Airway into Trachea, Via Natural or Artificial Opening (ICD-10-PCS; principal; 2019-07-03)
PROC: 06HY33Z Insertion of Infusion Device into Lower Vein, Percutaneous Approach (ICD-10-PCS; 2019-07-04)
PROC: 5A1D70Z Performance of Urinary Filtration, Intermittent, Less than 6 Hours Per Day (ICD-10-PCS; 2019-07-05)
PROC: B518YZA Fluoroscopy of Superior Vena Cava using Other Contrast, Guidance (ICD-10-PCS; 2019-07-23)
PROC: 0JH63XZ Insertion of Tunneled Vascular Access Device into Chest Subcutaneous Tissue and Fascia, Percutaneous Approach (ICD-10-PCS; 2019-07-23)
PROC: 02HV33Z Insertion of Infusion Device into Superior Vena Cava, Percutaneous Approach (ICD-10-PCS; 2019-07-23)
DX: A41.89 Other specified sepsis (principal); U07.1 COVID-19; I21.A1 Myocardial infarction type 2; J96.01 Acute respiratory failure with hypoxia; E43 Unspecified severe protein-calorie malnutrition; N17.0 Acute kidney failure with tubular necrosis; R65.21 Severe sepsis with septic shock; E11.10 Type 2 diabetes mellitus with ketoacidosis without coma; G93.40 Encephalopathy, unspecified; I48.20 Chronic atrial fibrillation, unspecified; I49.01 Ventricular fibrillation; I47.1 Supraventricular tachycardia; I46.9 Cardiac arrest, cause unspecified; L89.154 Pressure ulcer of sacral region, stage 4; J12.89 Other viral pneumonia; E87.2 Acidosis; E87.0 Hyperosmolality and hypernatremia; F03.90 Unspecified dementia, unspecified severity, without behavioral disturbance, psychotic disturbance, mood disturbance, and anxiety; I10 Essential (primary) hypertension; N39.0 Urinary tract infection, site not specified; Z86.73 Personal history of transient ischemic attack (TIA), and cerebral infarction without residual deficits; Z99.2 Dependence on renal dialysis; Z79.82 Long term (current) use of aspirin; Z86.74 Personal history of sudden cardiac arrest; K21.9 Gastro-esophageal reflux disease without esophagitis; J44.0 Chronic obstructive pulmonary disease with (acute) lower respiratory infection; Z79.4 Long term (current) use of insulin; E88.09 Other disorders of plasma-protein metabolism, not elsewhere classified; M62.50 Muscle wasting and atrophy, not elsewhere classified, unspecified site; R53.2 Functional quadriplegia; E11.9 Type 2 diabetes mellitus without complications; Z68.22 Body mass index [BMI] 22.0-22.9, adult; M62.82 Rhabdomyolysis; D63.8 Anemia in other chronic diseases classified elsewhere; L89.626 Pressure-induced deep tissue damage of left heel; L89.616 Pressure-induced deep tissue damage of right heel; L89.896 Pressure-induced deep tissue damage of other site; S41.112A Laceration without foreign body of left upper arm, initial encounter; X58.XXXA Exposure to other specified factors, initial encounter; Y93.9 Activity, unspecified; Y92.129 Unspecified place in nursing home as the place of occurrence of the external cause; R13.10 Dysphagia, unspecified
CPT/HCPCS: 31720; 36415; 36600; 71045-TC; 80048-TC; 80053-TC; 80061-TC; 80202-TC; 81000-TC; 82248-TC; 82533; 82550-TC; 82553; 82570-TC; 82728-TC; 82803-TC; 82962-TC; 83540-TC; 83605-TC; 83615-TC; 83735-TC; 83880; 84100-TC; 84155-TC; 84300-TC; 84484-TC; 85025-TC; 85378-TC; 85385-TC; 85396; 85730-TC; 86140-TC; 86704; 86705; 86706; 87040-TC; 87070-TC; 87081-TC; 87086-TC; 87340; 90935-TC; 92526; 92611-TC; 93307-TC; 94002-TC; 94003-TC; 94640-TC; 94760-TC; 94799-TC; A4216; A4217; A4349; A6253; A6403; C1750; C1751; G0378; J0171; J0282; J0330; J0456; J0610; J0690; J0692; J1644; J1815; J2185; J2270; J2916; J3370; J3475; J3480; J3490; J7030; J7042; J7050; J7060; U0003-CS